=== PATIENT | female | born 1940 | race Asian ===

== ENCOUNTER 2016-12-30 17:19 | Inpatient (IN) | payer MEDICARE, OTHER ==
[~2016-12-30] VITALS: Ht 152.4 cm; Wt 69.0 kg
[~2016-12-30 17:19] MED LIST: ALEN10 PO; AMLO-511 PO; ATEN25 PO; CALC600T2 PO; DOCU250C76 PO; ERGO400C PO; ETOMIDATE 2 MG/ML 10 ML VIAL IV ONE; FERR-89 PO; VECURONIUM BROMIDE 10 MG/VIAL IV ONE
[2016-12-30 17:31] LABS: GLUCOSE,POINT OF CARE 385 MG/DL (70-110)
[2016-12-30 17:58] LABS: EOSINOPHILS % (AUTO) 0 % (1.0-6.0); HEMATOCRIT 35.5 % (36-46); HEMOGLOBIN 11.6 g/dL (12.0-16.0); LYMPHOCYTES # (AUTO) 1.5 K/uL (1.0-4.8); LYMPHOCYTES % (AUTO) 11.9 % (22.0-44.0); MEAN CORPUSCULAR HEMOGLOBIN 32.8 pg (26.0-34.0); MEAN CORPUSCULAR HGB CONC 32.6 G/dL (31.0-37.0); MEAN CORPUSCULAR VOLUME 101 fL (80-100); MONOCYTES # (AUTO) 0.6 K/uL (0.1-1.0); MONOCYTES % (AUTO) 4.7 % (2.0-9.0); NEUTROPHILS # (AUTO) 10.8 K/uL (1.8-7.7); NEUTROPHILS % (AUTO) 83.4 % (40.0-70.0); PLATELET COUNT (AUTO) 212 K/uL (150-450); RED BLOOD CELL COUNT(AUTO) 3.52 MIL/uL (4.00-5.20); RED CELL DISTRIBUTION WIDTH 23.3 % (11.5-14.5); WHITE BLOOD COUNT (AUTO) 12.9 K/uL (4.5-11.0)
[2016-12-30 18:10] LABS: INR 1.1 (0.9-1.1); PROTHROMBIN TIME 11.1 SEC (9.4-11.6)
[2016-12-30 18:17] LABS: ANION GAP 12 mmol/L (8-16); CARBON DIOXIDE 22 mmol/L (22-29); CHLORIDE 100 mmol/L (98-107); CREATININE 1.08 mg/dL (0.60-1.30); GLOMERULAR FILTR. RATE CALC 49 mL/min (>60); POTASSIUM 3.3 mmol/L (3.5-5.1); SODIUM SERUM 134 mmol/L (136-145); UREA NITROGEN, BLOOD 19 mg/dL (7-18)
[2016-12-30 18:23] LABS: TROPONIN I 0.38 ng/mL (0.00-0.05)
[2016-12-30 18:42] LABS: ALANINE AMINOTRANSFERASE 127 U/L (12-78); ALBUMIN 2.1 g/dL (3.4-5.0); ASPARTATE AMINOTRANSFERASE 99 U/L (15-37); BILIRUBIN,TOTAL 5.8 mg/dL (0.1-1.0); CREATINE KINASE MB 4.2 ng/mL (0-5); CREATINE KINASE, TOTAL 88 U/L (26-192); TOTAL PROTEIN, SERUM 6.7 g/dL (6.4-8.2)
[2016-12-30] MEDS ORDERED: OS500 PO (18:55)
[2016-12-30] MEDS ORDERED: LABETALOL HCL 5 MG/ML 20 ML VIAL IVP ONE (19:00)
[2016-12-30] MEDS ORDERED: CefTRIAXone 1 GM/DEXTROSE 50 ML IV ONE (19:00)
[2016-12-30 19:14] LABS: RBC MORPHOLOGY COMMENT ABNORMAL RBC MORPH
[2016-12-30 19:18] LABS: APPEARANCE,URINE CLOUDY (CLEAR); GLUCOSE, URINE (UA) 500 mg/dL (NEGATIVE); KETONES,URINE NEGATIVE (NEGATIVE); LEUKOCYTE ESTERASE ,URINE NEGATIVE (NEGATIVE); OCCULT BLOOD,URINE NEGATIVE (NEGATIVE); PH,URINE 6.5 (5.0-8.0); PROTEIN,URINE NEGATIVE (NEGATIVE)
[2016-12-30 19:19] LABS: ADD UA MICROSCOPIC YES
[2016-12-30 19:20] LABS: RBC,URINE 0-2 /HPF (0-2)
[2016-12-30 19:21] LABS: CALCIUM OXALATE CRYSTALS,UR Few /LPF (None Seen); SQUAMOUS EPITHELIAL CELL,UR Moderate /LPF (None Seen)
[2016-12-30] MEDS ORDERED: INSULIN REGULAR, HUMAN 100 UNITS/ML IVP ONE (19:30)
[2016-12-30] MEDS ORDERED: SUCCINYLCHOLINE CHLORIDE 20 MG/ML 10 ML VIAL ONE (19:35)
[2016-12-30] MEDS ORDERED: RAPID SEQUENCE KIT [RSI] 1 EACH KIT ONE ×2 (19:35)
[2016-12-30] MEDS ORDERED: LACTULOSE 20 GM/30 ML SOLUTION UDCUP NG ONE (20:15)
[2016-12-30] MEDS ORDERED: PROPOFOL 1% 20 ML VIAL IVP ONE (20:30)
[2016-12-30] MEDS ORDERED: PROPOFOL 1000 MG/ISO-OSM 100 ML IV PRN (20:30)
[2016-12-30 20:31] LABS: GLUCOSE,POINT OF CARE 326 MG/DL (70-110)
[2016-12-30 21:11] LABS: ABG A-A DIFF O2 91.8 mmHg (10-20.0); ABG BASE EXCESS -4.7 mmol/L (-2.0-3.0); ABG HCO3 21.4 mmol/L (22.0-26.0); ABG OXYHEMOGLOBIN 94.8 % (94.0-100.0); ABG PCO2 30 mmHg (35-45); ABG PH 7.436 (7.35-7.450); TEMPERATURE, FAHRENHEIT, BG 98.3 FAHREN (96.0-98.6)
[2016-12-30 21:12] LABS: ALLEN TEST, BLOOD GAS Positive
[2016-12-30 21:41] LABS: GLUCOSE,POINT OF CARE 278 MG/DL (70-110)
[2016-12-30] MEDS ORDERED: DILTIAZEM HCL 5 MG/ML 5 ML VIAL IVP ONE (21:45)
[2016-12-30] MEDS ORDERED: ONDANSETRON HCL 4 MG/2 ML VIAL IVP PRN (22:45)
[2016-12-30] MEDS ORDERED: ALBUTEROL SULFATE 2.5 MG/0.5 ML NEB SOLUTION NEB PRN (22:45)
[2016-12-30] MEDS ORDERED: DILTIAZEM HCL 125 MG in DEXTROSE 5%-WATER 100 ML IV SCH ×4 (23:00)
[2016-12-30 23:47] LABS: GLUCOSE,POINT OF CARE 237 MG/DL (70-110)
[2016-12-31] MEDS: HEPARIN SODIUM,PORCINE 5,000 UNITS/ML VIAL SQ SCH ×3 (00:14→17:40)
[2016-12-31] MEDS ORDERED: 0.9% SODIUM CHLORIDE 5 ML NEB SOLUTION NEB ONE ×4 (01:32→20:31)
[2016-12-31] MEDS: PIPERACILLIN/TAZO 3.375 GM/D5W 50 ML IV SCH ×4 (01:37→18:12)
[2016-12-31] MEDS: ALBUTEROL SULFATE 2.5 MG/0.5 ML NEB SOLUTION NEB SCH ×4 (01:43→20:36)
[2016-12-31 03:46] LABS: GLUCOSE,POINT OF CARE 247 MG/DL (70-110)
[2016-12-31 07:01] LABS: HEMATOCRIT 35.6 % (36-46); HEMOGLOBIN 11.6 g/dL (12.0-16.0); MEAN CORPUSCULAR HEMOGLOBIN 32.8 pg (26.0-34.0); MEAN CORPUSCULAR HGB CONC 32.7 G/dL (31.0-37.0); MEAN CORPUSCULAR VOLUME 100 fL (80-100); PLATELET COUNT (AUTO) 160 K/uL (150-450); RED BLOOD CELL COUNT(AUTO) 3.55 MIL/uL (4.00-5.20); RED CELL DISTRIBUTION WIDTH 22.7 % (11.5-14.5); WHITE BLOOD COUNT (AUTO) 11.2 K/uL (4.5-11.0)
[2016-12-31 07:24] LABS: ALBUMIN 1.8 g/dL (3.4-5.0); BILIRUBIN,TOTAL 5.2 mg/dL (0.1-1.0); CALCIUM, TOTAL 7.4 mg/dL (8.8-10.5); CREATININE 0.97 mg/dL (0.60-1.30); POTASSIUM 3.3 mmol/L (3.5-5.1); THYROID STIMULATING HORMONE 0.68 uIU/mL (0.36-3.74); TOTAL PROTEIN, SERUM 5.9 g/dL (6.4-8.2)
[2016-12-31 07:36] LABS: HEMOGLOBIN A1C 7.2 % (4.5-6.2)
[2016-12-31 07:55] LABS: BAND NEUTROPHILS % (MANUAL) 27 % (1-5); LYMPHOCYTES % (MANUAL) 13 % (22-44); TOTAL CELLS COUNTED 100
[2016-12-31 07:56] LABS: RBC MORPHOLOGY COMMENT DIMORPHIC RBC
[2016-12-31] MEDS: PANTOPRAZOLE SODIUM 40 MG/VIAL IVP SCH (08:44)
[2016-12-31 09:48] LABS: VITAMIN B12 LEVEL > 2000 pg/mL (211-911)
[2016-12-31 09:57] LABS: GLUCOSE,POINT OF CARE 175 MG/DL (70-110)
[2016-12-31] MEDS: SODIUM CHLORIDE 0.9% 1,000 ML IV SCH (11:16)
[2016-12-31 16:18] LABS: CREATINE KINASE MB 5.2 ng/mL (0-5)
[2016-12-31] MEDS ORDERED: PROPOFOL 1000 MG/ISO-OSM 100 ML IV ONE (16:54)
[2016-12-31 18:35] LABS: GLUCOSE,POINT OF CARE 138 MG/DL (70-110)
[2017-01-01] MEDS: PIPERACILLIN/TAZO 3.375 GM/D5W 50 ML IV SCH ×4 (00:05→18:39)
[2017-01-01] MEDS: HEPARIN SODIUM,PORCINE 5,000 UNITS/ML VIAL SQ SCH ×4 (00:05→23:52)
[2017-01-01] MEDS: ALBUTEROL SULFATE 2.5 MG/0.5 ML NEB SOLUTION NEB SCH ×4 (02:36→20:41)
[2017-01-01] MEDS ORDERED: 0.9% SODIUM CHLORIDE 5 ML NEB SOLUTION NEB ONE ×5 (02:36→20:42)
[2017-01-01] MEDS: SODIUM CHLORIDE 0.9% 1,000 ML IV SCH (06:26)
[2017-01-01] MEDS: PROPOFOL 1000 MG/ISO-OSM 100 ML IV PRN ×2 (06:36→16:06)
[2017-01-01 07:46] LABS: GLUCOSE,POINT OF CARE 106 MG/DL (70-110)
[2017-01-01 08:08] LABS: EOSINOPHILS % (AUTO) 0.3 % (1.0-6.0); HEMATOCRIT 31.9 % (36-46); HEMOGLOBIN 10.2 g/dL (12.0-16.0); LYMPHOCYTES # (AUTO) 1.9 K/uL (1.0-4.8); LYMPHOCYTES % (AUTO) 17.5 % (22.0-44.0); MEAN CORPUSCULAR HEMOGLOBIN 32.1 pg (26.0-34.0); MEAN CORPUSCULAR HGB CONC 32.1 G/dL (31.0-37.0); MEAN CORPUSCULAR VOLUME 100 fL (80-100); MONOCYTES # (AUTO) 0.3 K/uL (0.1-1.0); MONOCYTES % (AUTO) 2.8 % (2.0-9.0); NEUTROPHILS # (AUTO) 8.5 K/uL (1.8-7.7); NEUTROPHILS % (AUTO) 79.4 % (40.0-70.0); PLATELET COUNT (AUTO) 163 K/uL (150-450); RED BLOOD CELL COUNT(AUTO) 3.19 MIL/uL (4.00-5.20); WHITE BLOOD COUNT (AUTO) 10.7 K/uL (4.5-11.0)
[2017-01-01 08:41] LABS: CALCIUM, TOTAL 7.1 mg/dL (8.8-10.5); CREATININE 0.97 mg/dL (0.60-1.30); POTASSIUM 3.1 mmol/L (3.5-5.1); TOTAL PROTEIN, SERUM 5.2 g/dL (6.4-8.2)
[2017-01-01 09:55] LABS: ABG BASE EXCESS -0.2 mmol/L (-2.0-3.0); ABG OXYHEMOGLOBIN 96.3 % (94.0-100.0); ABG PCO2 28 mmHg (35-45); ABG PH 7.529 (7.35-7.450); TEMPERATURE, FAHRENHEIT, BG 97.8 FAHREN (96.0-98.6)
[2017-01-01 09:57] LABS: ALLEN TEST, BLOOD GAS Positive
[2017-01-01] MEDS: POTASSIUM CHL 10 MEQ/WATER 50 ML IV PRN ×3 (10:28→13:01)
[2017-01-01] MEDS: PANTOPRAZOLE SODIUM 40 MG/VIAL IVP SCH (10:28)
[2017-01-01 10:57] LABS: RBC MORPHOLOGY COMMENT ABNORMAL RBC MORPH
[2017-01-01 12:00] VITALS: BP 101/73
[2017-01-01 13:11] LABS: APPEARANCE,UNSPUN,BODY FLUID CLOUDY (CLEAR); COLOR,BODY FLUID YELLOW (LT YELLOW)
[2017-01-01 13:12] LABS: OTHER CELLS,BODY FLUID MACROPHAGES
[2017-01-01 16:00] VITALS: BP 123/68
[2017-01-01 20:00] VITALS: BP 117/73
[2017-01-01 22:00] VITALS: BP 85/60
[2017-01-02] VITALS (9 sets, daily range): BP systolic 94–132; BP diastolic 59–77
[2017-01-02] MEDS: PIPERACILLIN/TAZO 3.375 GM/D5W 50 ML IV SCH ×4 (00:38→17:51)
[2017-01-02] MEDS: ALBUTEROL SULFATE 2.5 MG/0.5 ML NEB SOLUTION NEB SCH ×4 (01:36→19:27)
[2017-01-02] MEDS ORDERED: 0.9% SODIUM CHLORIDE 5 ML NEB SOLUTION NEB ONE ×5 (01:37→19:28)
[2017-01-02] MEDS: PROPOFOL 1000 MG/ISO-OSM 100 ML IV PRN ×2 (02:19→13:27)
[2017-01-02] MEDS: SODIUM CHLORIDE 0.9% 1,000 ML IV SCH ×2 (04:49→23:56)
[2017-01-02 08:29] LABS: ABG A-A DIFF O2 102.3 mmHg (10-20.0); ABG BASE EXCESS -4.6 mmol/L (-2.0-3.0); ABG HCO3 21.5 mmol/L (22.0-26.0); ABG OXYHEMOGLOBIN 94.1 % (94.0-100.0); ABG PCO2 28 mmHg (35-45); ABG PH 7.458 (7.35-7.450); TEMPERATURE, FAHRENHEIT, BG 98.6 FAHREN (96.0-98.6)
[2017-01-02] MEDS: PANTOPRAZOLE SODIUM 40 MG/VIAL IVP SCH (08:31)
[2017-01-02] MEDS: HEPARIN SODIUM,PORCINE 5,000 UNITS/ML VIAL SQ SCH ×2 (08:31→16:00)
[2017-01-02 08:35] LABS: ALLEN TEST, BLOOD GAS Positive
[2017-01-02 09:46] LABS: ALBUMIN 1.2 g/dL (3.4-5.0); BILIRUBIN,TOTAL 4.9 mg/dL (0.1-1.0); CALCIUM, TOTAL 7.2 mg/dL (8.8-10.5); CREATININE 1.08 mg/dL (0.60-1.30); POTASSIUM 3.4 mmol/L (3.5-5.1); TOTAL PROTEIN, SERUM 4.7 g/dL (6.4-8.2)
[2017-01-02] MEDS: POTASSIUM CHL 10 MEQ/WATER 50 ML IV PRN ×3 (10:40→15:05)
[2017-01-02] MEDS: INSULIN REGULAR, HUMAN 100 UNITS/ML SQ PRN ×2 (13:27→17:52)
[2017-01-02 16:11] LABS: TOTAL PROTEIN,BODY FLUID,REF 2.1 g/dL
[2017-01-03] VITALS (8 sets, daily range): BP systolic 116–143; BP diastolic 66–82
[2017-01-03] MEDS: HEPARIN SODIUM,PORCINE 5,000 UNITS/ML VIAL SQ SCH ×3 (00:01→18:26)
[2017-01-03] MEDS: PIPERACILLIN/TAZO 3.375 GM/D5W 50 ML IV SCH ×4 (00:01→18:27)
[2017-01-03] MEDS: INSULIN REGULAR, HUMAN 100 UNITS/ML SQ PRN ×4 (00:58→18:27)
[2017-01-03] MEDS ORDERED: 0.9% SODIUM CHLORIDE 5 ML NEB SOLUTION NEB ONE ×5 (02:14→19:11)
[2017-01-03] MEDS: ALBUTEROL SULFATE 2.5 MG/0.5 ML NEB SOLUTION NEB SCH ×4 (02:16→19:54)
[2017-01-03] MEDS: PROPOFOL 1000 MG/ISO-OSM 100 ML IV PRN (03:32)
[2017-01-03 05:15] LABS: CALCIUM, TOTAL 7.8 mg/dL (8.8-10.5); CREATININE 1.11 mg/dL (0.60-1.30); POTASSIUM 4.4 mmol/L (3.5-5.1)
[2017-01-03] MEDS: PANTOPRAZOLE SODIUM 40 MG/VIAL IVP SCH (08:06)
[2017-01-03] MEDS: ALBUMIN HUMAN 25%-25GM/100ML 100 ML IV SCH ×2 (10:39→18:27)
[2017-01-03 11:16] LABS: GLUCOSE COMMENT 1 Received Meds; GLUCOSE,POINT OF CARE 277 MG/DL (70-110)
[2017-01-03 11:16] LABS: GLUCOSE COMMENT 1 Received Meds; GLUCOSE,POINT OF CARE 274 MG/DL (70-110)
[2017-01-03] MEDS: SODIUM CHLORIDE 0.9% 1,000 ML IV SCH (18:27)
[2017-01-03 21:31] LABS: GLUCOSE COMMENT 1 Received Meds; GLUCOSE,POINT OF CARE 151 MG/DL (70-110)
[2017-01-03 21:36] LABS: GLUCOSE COMMENT 1 Received Meds; GLUCOSE,POINT OF CARE 260 MG/DL (70-110)
[2017-01-03 21:36] LABS: GLUCOSE COMMENT 1 Received Meds; GLUCOSE,POINT OF CARE 266 MG/DL (70-110)
[2017-01-03 21:37] LABS: GLUCOSE COMMENT 1 Received Meds; GLUCOSE,POINT OF CARE 238 MG/DL (70-110)
[2017-01-03] MEDS: RIFAXIMIN 550 MG TABLET PO SCH (21:44)
[2017-01-04] VITALS: BP 126/70
[2017-01-04] MEDS: PIPERACILLIN/TAZO 3.375 GM/D5W 50 ML IV SCH ×4 (00:41→18:29)
[2017-01-04] MEDS: HEPARIN SODIUM,PORCINE 5,000 UNITS/ML VIAL SQ SCH ×3 (00:41→15:13)
[2017-01-04] MEDS: INSULIN REGULAR, HUMAN 100 UNITS/ML SQ PRN ×2 (00:44→06:30)
[2017-01-04] MEDS ORDERED: 0.9% SODIUM CHLORIDE 5 ML NEB SOLUTION NEB ONE ×4 (01:30→20:03)
[2017-01-04 01:42] LABS: GLUCOSE COMMENT 1 Received Meds; GLUCOSE,POINT OF CARE 278 MG/DL (70-110)
[2017-01-04 01:42] LABS: GLUCOSE COMMENT 1 Received Meds; GLUCOSE,POINT OF CARE 179 MG/DL (70-110)
[2017-01-04] MEDS: ALBUTEROL SULFATE 2.5 MG/0.5 ML NEB SOLUTION NEB SCH ×4 (01:48→21:19)
[2017-01-04] MEDS: ALBUMIN HUMAN 25%-25GM/100ML 100 ML IV SCH ×3 (01:51→16:54)
[2017-01-04 04:00] VITALS: BP 115/65
[2017-01-04 05:25] LABS: HEMATOCRIT 21.5 % (36-46); HEMOGLOBIN 7.3 g/dL (12.0-16.0); MEAN CORPUSCULAR HEMOGLOBIN 32.8 pg (26.0-34.0); MEAN CORPUSCULAR HGB CONC 33.8 G/dL (31.0-37.0); MEAN CORPUSCULAR VOLUME 97 fL (80-100); RED BLOOD CELL COUNT(AUTO) 2.21 MIL/uL (4.00-5.20); RED CELL DISTRIBUTION WIDTH 22.1 % (11.5-14.5); WHITE BLOOD COUNT (AUTO) 6.9 K/uL (4.5-11.0)
[2017-01-04 05:55] LABS: ALANINE AMINOTRANSFERASE 38 U/L (12-78); ALBUMIN 2.9 g/dL (3.4-5.0); ANION GAP 12 mmol/L (8-16); ASPARTATE AMINOTRANSFERASE 45 U/L (15-37); BILIRUBIN,TOTAL 5.1 mg/dL (0.1-1.0); CALCIUM, TOTAL 8.2 mg/dL (8.8-10.5); CARBON DIOXIDE 23 mmol/L (22-29); CHLORIDE 106 mmol/L (98-107); GLOMERULAR FILTR. RATE CALC > 60 mL/min (>60); POTASSIUM 3.6 mmol/L (3.5-5.1); SODIUM SERUM 141 mmol/L (136-145); TOTAL PROTEIN, SERUM 5.2 g/dL (6.4-8.2); UREA NITROGEN, BLOOD 24 mg/dL (7-18)
[2017-01-04 05:56] LABS: PLATELET COUNT (AUTO) 146 K/uL (150-450)
[2017-01-04 05:59] LABS: BAND NEUTROPHILS % (MANUAL) 16 % (1-5); LYMPHOCYTES % (MANUAL) 14 % (22-44); RBC MORPHOLOGY COMMENT ABNORMAL R; TOTAL CELLS COUNTED 100
[2017-01-04] MEDS: PROPOFOL 1000 MG/ISO-OSM 100 ML IV PRN (06:59)
[2017-01-04 08:00] VITALS: BP 114/63
[2017-01-04] MEDS: POTASSIUM CHL 10 MEQ/WATER 50 ML IV PRN ×3 (08:01→11:00)
[2017-01-04] MEDS: RIFAXIMIN 550 MG TABLET PO SCH ×2 (08:01→20:19)
[2017-01-04] MEDS: PANTOPRAZOLE SODIUM 40 MG/VIAL IVP SCH (08:01)
[2017-01-04 12:00] VITALS: BP 103/55
[2017-01-04] MEDS: SODIUM CHLORIDE 0.9% 1,000 ML IV SCH (15:00)
[2017-01-04 16:00] VITALS: BP 100/58
[2017-01-04] MEDS ORDERED: *CLINICAL-RX DOSING [ENTER DRUG IN COMMENTS] CLINICAL ONE ×8 (17:30)
[2017-01-04 20:00] VITALS: BP 103/56
[2017-01-04] MEDS: RIFAMPIN 150 MG CAPSULE PO SCH (20:20)
[2017-01-04] MEDS: ETHAMBUTOL HCL 400 MG TABLET PO SCH (20:20)
[2017-01-04] MEDS: PYRAZINAMIDE 500 MG TABLET PO SCH (20:20)
[2017-01-04] MEDS: ISONIAZID 300 MG TABLET PO SCH (20:21)
[2017-01-04 20:25] LABS: GLUCOSE COMMENT 1 Received Meds; GLUCOSE,POINT OF CARE 173 MG/DL (70-110)
[2017-01-05] VITALS (8 sets, daily range): BP systolic 99–148; BP diastolic 51–77
[2017-01-05] MEDS: PIPERACILLIN/TAZO 3.375 GM/D5W 50 ML IV SCH ×4 (00:22→17:46)
[2017-01-05] MEDS: HEPARIN SODIUM,PORCINE 5,000 UNITS/ML VIAL SQ SCH ×2 (00:23→08:23)
[2017-01-05] MEDS: INSULIN REGULAR, HUMAN 100 UNITS/ML SQ PRN ×3 (00:24→12:39)
[2017-01-05] MEDS ORDERED: 0.9% SODIUM CHLORIDE 5 ML NEB SOLUTION NEB ONE ×4 (02:10→19:19)
[2017-01-05] MEDS: ALBUTEROL SULFATE 2.5 MG/0.5 ML NEB SOLUTION NEB SCH ×4 (02:18→19:23)
[2017-01-05 02:27] LABS: GLUCOSE,POINT OF CARE 137 MG/DL (70-110)
[2017-01-05 02:27] LABS: GLUCOSE,POINT OF CARE 121 MG/DL (70-110)
[2017-01-05 02:27] LABS: GLUCOSE COMMENT 1 Received Meds; GLUCOSE,POINT OF CARE 186 MG/DL (70-110)
[2017-01-05] MEDS: ALBUMIN HUMAN 25%-25GM/100ML 100 ML IV SCH ×3 (03:25→17:46)
[2017-01-05 04:36] LABS: GLUCOSE COMMENT 1 Received Meds; GLUCOSE,POINT OF CARE 143 MG/DL (70-110)
[2017-01-05 05:20] LABS: BASOPHILS # (AUTO) 0.02 K/uL (0.00-0.20); BASOPHILS % (AUTO) 0.4 % (0.0-2.0); EOSINOPHILS # (AUTO) 0.05 K/uL (0.00-0.70); HEMATOCRIT 21.5 % (36-46); LYMPHOCYTES # (AUTO) 0.4 K/uL (1.0-4.8); LYMPHOCYTES % (AUTO) 6.5 % (22.0-44.0); MEAN CORPUSCULAR HEMOGLOBIN 32.5 pg (26.0-34.0); MEAN CORPUSCULAR HGB CONC 32.7 G/dL (31.0-37.0); MEAN CORPUSCULAR VOLUME 99 fL (80-100); MONOCYTES # (AUTO) 0.4 K/uL (0.1-1.0); MONOCYTES % (AUTO) 6.4 % (2.0-9.0); NEUTROPHILS # (AUTO) 4.7 K/uL (1.8-7.7); PLATELET COUNT (AUTO) 117 K/uL (150-450); RED BLOOD CELL COUNT(AUTO) 2.17 MIL/uL (4.00-5.20); RED CELL DISTRIBUTION WIDTH 22.4 % (11.5-14.5); WHITE BLOOD COUNT (AUTO) 5.4 K/uL (4.5-11.0)
[2017-01-05 05:29] LABS: NEUTROPHILS % (AUTO) 85.8 % (40.0-70.0)
[2017-01-05 05:38] LABS: ALBUMIN 3.4 g/dL (3.4-5.0); BILIRUBIN,TOTAL 6.5 mg/dL (0.1-1.0); CALCIUM, TOTAL 8.2 mg/dL (8.8-10.5); CREATININE 0.92 mg/dL (0.60-1.30); POTASSIUM 3.4 mmol/L (3.5-5.1); TOTAL PROTEIN, SERUM 5.2 g/dL (6.4-8.2)
[2017-01-05] MEDS: ACETAMINOPHEN 325 MG TABLET PO PRN (05:54)
[2017-01-05 07:40] LABS: RBC MORPHOLOGY COMMENT ABNORMAL RBC MORPH
[2017-01-05] MEDS: POTASSIUM CHLORIDE 20 MEQ ER TABLET PO PRN (08:24)
[2017-01-05] MEDS: RIFAXIMIN 550 MG TABLET PO SCH ×2 (08:24→20:03)
[2017-01-05] MEDS: RIFAMPIN 150 MG CAPSULE PO SCH (08:24)
[2017-01-05] MEDS: PANTOPRAZOLE SODIUM 40 MG/VIAL IVP SCH (08:24)
[2017-01-05] MEDS: ETHAMBUTOL HCL 400 MG TABLET PO SCH (08:24)
[2017-01-05] MEDS: PYRAZINAMIDE 500 MG TABLET PO SCH (08:25)
[2017-01-05] MEDS: ISONIAZID 300 MG TABLET PO SCH (08:25)
[2017-01-05] MEDS: SODIUM CHLORIDE 0.9% 1,000 ML IV SCH (10:30)
[2017-01-05] MEDS ORDERED: SODIUM CHLORIDE 0.9% 500 ML IV ONE (15:21)
[2017-01-05] MEDS: MORPHINE SULFATE 2 MG/ML SYRINGE IVP PRN (15:26)
[2017-01-05 17:51] LABS: GLUCOSE,POINT OF CARE 103 MG/DL (70-110)
[2017-01-05 17:51] LABS: GLUCOSE COMMENT 1 Received Meds; GLUCOSE,POINT OF CARE 152 MG/DL (70-110)
[2017-01-05] MEDS ORDERED: SODIUM CHLORIDE 0.9% 250 ML IV ONE (20:45)
[2017-01-06] VITALS (10 sets, daily range): BP systolic 116–167; BP diastolic 50–93
[2017-01-06] MEDS: INSULIN REGULAR, HUMAN 100 UNITS/ML SQ PRN ×4 (00:05→18:02)
[2017-01-06] MEDS: PIPERACILLIN/TAZO 3.375 GM/D5W 50 ML IV SCH ×4 (00:06→18:01)
[2017-01-06] MEDS ORDERED: 0.9% SODIUM CHLORIDE 5 ML NEB SOLUTION NEB ONE ×4 (02:07→19:37)
[2017-01-06] MEDS: ALBUTEROL SULFATE 2.5 MG/0.5 ML NEB SOLUTION NEB SCH ×4 (02:08→19:53)
[2017-01-06] MEDS: ALBUMIN HUMAN 25%-25GM/100ML 100 ML IV SCH ×3 (03:44→18:00)
[2017-01-06 04:01] LABS: GLUCOSE COMMENT 1 Received Meds; GLUCOSE,POINT OF CARE 133 MG/DL (70-110)
[2017-01-06 05:36] LABS: ALANINE AMINOTRANSFERASE 17 U/L (12-78); ALBUMIN 3.6 g/dL (3.4-5.0); ANION GAP 13 mmol/L (8-16); ASPARTATE AMINOTRANSFERASE 27 U/L (15-37); BILIRUBIN,TOTAL 12.1 mg/dL (0.1-1.0); CALCIUM, TOTAL 8.5 mg/dL (8.8-10.5); CARBON DIOXIDE 21 mmol/L (22-29); CHLORIDE 109 mmol/L (98-107); CREATININE 0.76 mg/dL (0.60-1.30); GLOMERULAR FILTR. RATE CALC > 60 mL/min (>60); POTASSIUM 3.5 mmol/L (3.5-5.1); SODIUM SERUM 143 mmol/L (136-145); TOTAL PROTEIN, SERUM 5.2 g/dL (6.4-8.2); UREA NITROGEN, BLOOD 19 mg/dL (7-18)
[2017-01-06 06:39] LABS: EOSINOPHILS % (AUTO) 1.5 % (1.0-6.0); HEMATOCRIT 31.5 % (36-46); HEMOGLOBIN 10.4 g/dL (12.0-16.0); LYMPHOCYTES # (AUTO) 0.4 K/uL (1.0-4.8); MEAN CORPUSCULAR HEMOGLOBIN 30.9 pg (26.0-34.0); MEAN CORPUSCULAR VOLUME 94 fL (80-100); MONOCYTES # (AUTO) 0.4 K/uL (0.1-1.0); MONOCYTES % (AUTO) 7.1 % (2.0-9.0); NEUTROPHILS # (AUTO) 5.3 K/uL (1.8-7.7); PLATELET COUNT (AUTO) 87 K/uL (150-450); RED BLOOD CELL COUNT(AUTO) 3.37 MIL/uL (4.00-5.20); RED CELL DISTRIBUTION WIDTH 23.6 % (11.5-14.5); WHITE BLOOD COUNT (AUTO) 6.3 K/uL (4.5-11.0)
[2017-01-06] MEDS: LACTULOSE 20 GM/30 ML SOLUTION UDCUP PO PRN (07:00)
[2017-01-06] MEDS: SODIUM CHLORIDE 0.9% 1,000 ML IV SCH (07:02)
[2017-01-06 07:26] LABS: NEUTROPHILS % (AUTO) 85.4 % (40.0-70.0)
[2017-01-06] MEDS: PANTOPRAZOLE SODIUM 40 MG/VIAL IVP SCH (08:29)
[2017-01-06] MEDS: POTASSIUM CHL 10 MEQ/WATER 50 ML IV PRN ×2 (08:29→12:10)
[2017-01-06] MEDS: PYRIDOXINE HCL 50 MG TABLET PO SCH (08:29)
[2017-01-06] MEDS: ISONIAZID 300 MG TABLET PO SCH (08:30)
[2017-01-06] MEDS: PYRAZINAMIDE 500 MG TABLET PO SCH (08:30)
[2017-01-06] MEDS: ETHAMBUTOL HCL 400 MG TABLET PO SCH (08:30)
[2017-01-06] MEDS: RIFAXIMIN 550 MG TABLET PO SCH ×2 (08:30→22:01)
[2017-01-06] MEDS: RIFAMPIN 150 MG CAPSULE PO SCH (08:31)
[2017-01-06] MEDS: MORPHINE SULFATE 2 MG/ML SYRINGE IVP PRN ×2 (09:45→14:54)
[2017-01-06 10:12] LABS: ABG A-A DIFF O2 109.5 mmHg (10-20.0); ABG BASE EXCESS -6.2 mmol/L (-2.0-3.0); ABG HCO3 20.4 mmol/L (22.0-26.0); ABG OXYHEMOGLOBIN 92.9 % (94.0-100.0); ABG PCO2 29 mmHg (35-45); ABG PH 7.422 (7.35-7.450); TEMPERATURE, FAHRENHEIT, BG 98.6 FAHREN (96.0-98.6)
[2017-01-06 10:14] LABS: ALLEN TEST, BLOOD GAS Positive
[2017-01-06 11:06] LABS: GLUCOSE COMMENT 1 Received Meds; GLUCOSE,POINT OF CARE 142 MG/DL (70-110)
[2017-01-06 14:59] LABS: ANION GAP 14 mmol/L (8-16); CALCIUM, TOTAL 9.2 mg/dL (8.8-10.5); CARBON DIOXIDE 22 mmol/L (22-29); CHLORIDE 108 mmol/L (98-107); CREATININE 0.76 mg/dL (0.60-1.30); GLOMERULAR FILTR. RATE CALC > 60 mL/min (>60); POTASSIUM 4.3 mmol/L (3.5-5.1); SODIUM SERUM 144 mmol/L (136-145); UREA NITROGEN, BLOOD 19 mg/dL (7-18)
[2017-01-06] MEDS ORDERED: AMIODARONE HCL 150 MG in DEXTROSE 5%-WATER 97 ML IV ONE (15:00)
[2017-01-06] MEDS ORDERED: AMIODARONE HCL 360 MG in DEXTROSE 5%-WATER 242.8 ML IV ONE (15:10)
[2017-01-06 18:41] LABS: GLUCOSE COMMENT 1 Received Meds; GLUCOSE,POINT OF CARE 146 MG/DL (70-110)
[2017-01-06 18:46] LABS: GLUCOSE,POINT OF CARE 168 MG/DL (70-110)
[2017-01-06] MEDS ORDERED: AMIODARONE HCL 540 MG in DEXTROSE 5%-WATER 239.2 ML IV ONE (21:10)
[2017-01-07] VITALS (11 sets, daily range): BP systolic 116–152; BP diastolic 61–93
[2017-01-07] MEDS: PIPERACILLIN/TAZO 3.375 GM/D5W 50 ML IV SCH ×4 (00:19→18:33)
[2017-01-07] MEDS: INSULIN REGULAR, HUMAN 100 UNITS/ML SQ PRN ×4 (00:21→18:08)
[2017-01-07 01:17] LABS: GLUCOSE COMMENT 1 Received Meds; GLUCOSE,POINT OF CARE 174 MG/DL (70-110)
[2017-01-07] MEDS ORDERED: 0.9% SODIUM CHLORIDE 5 ML NEB SOLUTION NEB ONE ×3 (01:34→19:07)
[2017-01-07] MEDS: ALBUTEROL SULFATE 2.5 MG/0.5 ML NEB SOLUTION NEB SCH ×4 (01:39→19:11)
[2017-01-07] MEDS: ALBUMIN HUMAN 25%-25GM/100ML 100 ML IV SCH ×3 (02:42→18:06)
[2017-01-07] MEDS: SODIUM CHLORIDE 0.9% 1,000 ML IV SCH (03:16)
[2017-01-07 05:16] LABS: GLUCOSE COMMENT 1 Received Meds; GLUCOSE,POINT OF CARE 171 MG/DL (70-110)
[2017-01-07 05:52] LABS: ALANINE AMINOTRANSFERASE 17 U/L (12-78); ALBUMIN 3.7 g/dL (3.4-5.0); ANION GAP 13 mmol/L (8-16); ASPARTATE AMINOTRANSFERASE 26 U/L (15-37); BILIRUBIN,TOTAL 15.6 mg/dL (0.1-1.0); CALCIUM, TOTAL 8.6 mg/dL (8.8-10.5); CARBON DIOXIDE 20 mmol/L (22-29); CHLORIDE 108 mmol/L (98-107); CREATININE 0.68 mg/dL (0.60-1.30); GLOMERULAR FILTR. RATE CALC > 60 mL/min (>60); POTASSIUM 3.7 mmol/L (3.5-5.1); SODIUM SERUM 141 mmol/L (136-145); TOTAL PROTEIN, SERUM 5.1 g/dL (6.4-8.2); UREA NITROGEN, BLOOD 19 mg/dL (7-18)
[2017-01-07 06:20] LABS: BASOPHILS # (AUTO) 0.02 K/uL (0.00-0.20); BASOPHILS % (AUTO) 0.3 % (0.0-2.0); EOSINOPHILS # (AUTO) 0.06 K/uL (0.00-0.70); EOSINOPHILS % (AUTO) 0.82 % (1.0-6.0); HEMATOCRIT 29.7 % (36-46); HEMOGLOBIN 10.1 g/dL (12.0-16.0); LYMPHOCYTES # (AUTO) 0.4 K/uL (1.0-4.8); LYMPHOCYTES % (AUTO) 6.5 % (22.0-44.0); MEAN CORPUSCULAR HEMOGLOBIN 31.5 pg (26.0-34.0); MEAN CORPUSCULAR HGB CONC 34.1 G/dL (31.0-37.0); MEAN CORPUSCULAR VOLUME 93 fL (80-100); MONOCYTES # (AUTO) 0.3 K/uL (0.1-1.0); MONOCYTES % (AUTO) 4.6 % (2.0-9.0); PLATELET COUNT (AUTO) 77 K/uL (150-450); RED BLOOD CELL COUNT(AUTO) 3.21 MIL/uL (4.00-5.20); RED CELL DISTRIBUTION WIDTH 23.7 % (11.5-14.5); WHITE BLOOD COUNT (AUTO) 6.8 K/uL (4.5-11.0)
[2017-01-07 06:37] LABS: NEUTROPHILS % (AUTO) 87.8 % (40.0-70.0)
[2017-01-07] MEDS: PYRIDOXINE HCL 50 MG TABLET PO SCH (09:02)
[2017-01-07] MEDS: PANTOPRAZOLE SODIUM 40 MG/VIAL IVP SCH (09:02)
[2017-01-07] MEDS: RIFAXIMIN 550 MG TABLET PO SCH ×2 (09:03→21:26)
[2017-01-07] MEDS: MORPHINE SULFATE 2 MG/ML SYRINGE IVP PRN ×2 (09:04→15:39)
[2017-01-07 10:34] LABS: RBC MORPHOLOGY COMMENT ABNORMAL RBC MORPH
[2017-01-07 13:11] LABS: GLUCOSE,POINT OF CARE 164 MG/DL (70-110)
[2017-01-07] MEDS: ACETAMINOPHEN 325 MG TABLET PO PRN (13:25)
[2017-01-07] MEDS ORDERED: AMIODARONE HCL 750 MG in DEXTROSE 5%-WATER 485 ML IV SCH (15:10)
[2017-01-07 18:41] LABS: GLUCOSE COMMENT 1 Received Meds; GLUCOSE,POINT OF CARE 178 MG/DL (70-110)
[2017-01-08] VITALS: BP 141/74
[2017-01-08] MEDS: INSULIN REGULAR, HUMAN 100 UNITS/ML SQ PRN ×4 (01:04→18:30)
[2017-01-08] MEDS: PIPERACILLIN/TAZO 3.375 GM/D5W 50 ML IV SCH ×4 (01:15→18:08)
[2017-01-08] MEDS: SODIUM CHLORIDE 0.9% 1,000 ML IV SCH (01:16)
[2017-01-08] MEDS: ALBUTEROL SULFATE 2.5 MG/0.5 ML NEB SOLUTION NEB SCH ×4 (02:00→19:15)
[2017-01-08] MEDS ORDERED: 0.9% SODIUM CHLORIDE 5 ML NEB SOLUTION NEB ONE ×2 (02:25→14:30)
[2017-01-08] MEDS: ALBUMIN HUMAN 25%-25GM/100ML 100 ML IV SCH ×3 (02:28→18:08)
[2017-01-08 03:26] LABS: GLUCOSE COMMENT 1 Received Meds; GLUCOSE,POINT OF CARE 194 MG/DL (70-110)
[2017-01-08 04:00] VITALS: BP 168/97
[2017-01-08] MEDS: MORPHINE SULFATE 2 MG/ML SYRINGE IVP PRN ×2 (04:21→12:00)
[2017-01-08 05:32] LABS: BASOPHILS # (AUTO) 0.02 K/uL (0.00-0.20); BASOPHILS % (AUTO) 0.2 % (0.0-2.0); EOSINOPHILS % (AUTO) 1.02 % (1.0-6.0); HEMOGLOBIN 11.4 g/dL (12.0-16.0); LYMPHOCYTES # (AUTO) 0.5 K/uL (1.0-4.8); LYMPHOCYTES % (AUTO) 4.7 % (22.0-44.0); MEAN CORPUSCULAR HEMOGLOBIN 31.3 pg (26.0-34.0); MEAN CORPUSCULAR HGB CONC 33.4 G/dL (31.0-37.0); MEAN CORPUSCULAR VOLUME 94 fL (80-100); MONOCYTES # (AUTO) 0.3 K/uL (0.1-1.0); NEUTROPHILS # (AUTO) 8.8 K/uL (1.8-7.7); PLATELET COUNT (AUTO) 89 K/uL (150-450); RED BLOOD CELL COUNT(AUTO) 3.63 MIL/uL (4.00-5.20); RED CELL DISTRIBUTION WIDTH 24.3 % (11.5-14.5); WHITE BLOOD COUNT (AUTO) 9.7 K/uL (4.5-11.0)
[2017-01-08 05:46] LABS: NEUTROPHILS % (AUTO) 91.1 % (40.0-70.0)
[2017-01-08 06:02] LABS: ALANINE AMINOTRANSFERASE 14 U/L (12-78); ALBUMIN 4.3 g/dL (3.4-5.0); ANION GAP 16 mmol/L (8-16); ASPARTATE AMINOTRANSFERASE 32 U/L (15-37); BILIRUBIN,TOTAL 17.2 mg/dL (0.1-1.0); CALCIUM, TOTAL 8.9 mg/dL (8.8-10.5); CARBON DIOXIDE 17 mmol/L (22-29); CHLORIDE 106 mmol/L (98-107); CREATININE 0.61 mg/dL (0.60-1.30); GLOMERULAR FILTR. RATE CALC > 60 mL/min (>60); POTASSIUM 3.3 mmol/L (3.5-5.1); SODIUM SERUM 139 mmol/L (136-145); TOTAL PROTEIN, SERUM 5.7 g/dL (6.4-8.2); UREA NITROGEN, BLOOD 21 mg/dL (7-18)
[2017-01-08 08:00] VITALS: BP 135/73
[2017-01-08 08:33] LABS: RBC MORPHOLOGY COMMENT ABNORMAL RBC MORPH
[2017-01-08] MEDS: PANTOPRAZOLE SODIUM 40 MG/VIAL IVP SCH (08:58)
[2017-01-08] MEDS: PYRIDOXINE HCL 50 MG TABLET PO SCH (08:59)
[2017-01-08] MEDS: RIFAXIMIN 550 MG TABLET PO SCH ×2 (08:59→22:05)
[2017-01-08] MEDS: POTASSIUM CHLORIDE 20 MEQ ER TABLET PO PRN (08:59)
[2017-01-08 09:01] LABS: GLUCOSE COMMENT 1 Received Meds; GLUCOSE,POINT OF CARE 171 MG/DL (70-110)
[2017-01-08] MEDS ORDERED: FUROSEMIDE 40 MG/4 ML VIAL IVP ONE (11:45)
[2017-01-08 12:00] VITALS: BP 159/89
[2017-01-08] MEDS: AMIODARONE HCL 200 MG TABLET NG SCH ×2 (14:24→22:05)
[2017-01-08 16:00] VITALS: BP 164/85
[2017-01-08] MEDS ORDERED: 0.9% SODIUM CHLORIDE 15 ML NEB SOLUTION NEB ONE (19:14)
[2017-01-08 20:00] VITALS: BP 121/63
[2017-01-09] VITALS (11 sets, daily range): BP systolic 94–154; BP diastolic 52–85
[2017-01-09] MEDS: AMPICILLIN SODIUM/SULBACTAM NA 3 GM in SODIUM CHLORIDE 0.9% 100 ML IV SCH ×5 (00:18→23:37)
[2017-01-09] MEDS: INSULIN REGULAR, HUMAN 100 UNITS/ML SQ PRN ×5 (00:33→23:43)
[2017-01-09] MEDS: ALBUTEROL SULFATE 2.5 MG/0.5 ML NEB SOLUTION NEB SCH ×4 (01:48→20:08)
[2017-01-09] MEDS: ALBUMIN HUMAN 25%-25GM/100ML 100 ML IV SCH ×3 (02:22→18:31)
[2017-01-09] MEDS: MORPHINE SULFATE 2 MG/ML SYRINGE IVP PRN ×3 (03:34→22:06)
[2017-01-09 06:45] LABS: BASOPHILS % (AUTO) 0.6 % (0.0-2.0); EOSINOPHILS % (AUTO) 1.2 % (1.0-6.0); HEMATOCRIT 30.1 % (36-46); HEMOGLOBIN 9.8 g/dL (12.0-16.0); LYMPHOCYTES # (AUTO) 0.4 K/uL (1.0-4.8); LYMPHOCYTES % (AUTO) 5.3 % (22.0-44.0); MEAN CORPUSCULAR HEMOGLOBIN 31.1 pg (26.0-34.0); MEAN CORPUSCULAR HGB CONC 32.7 G/dL (31.0-37.0); MEAN CORPUSCULAR VOLUME 95 fL (80-100); MONOCYTES # (AUTO) 0.3 K/uL (0.1-1.0); MONOCYTES % (AUTO) 3.9 % (2.0-9.0); NEUTROPHILS # (AUTO) 7.1 K/uL (1.8-7.7); PLATELET COUNT (AUTO) 77 K/uL (150-450); RED BLOOD CELL COUNT(AUTO) 3.17 MIL/uL (4.00-5.20); RED CELL DISTRIBUTION WIDTH 24.2 % (11.5-14.5)
[2017-01-09 07:36] LABS: ALANINE AMINOTRANSFERASE 14 U/L (12-78); ALBUMIN 3.8 g/dL (3.4-5.0); ANION GAP 13 mmol/L (8-16); ASPARTATE AMINOTRANSFERASE 42 U/L (15-37); BILIRUBIN,TOTAL 15.9 mg/dL (0.1-1.0); CALCIUM, TOTAL 8.6 mg/dL (8.8-10.5); CARBON DIOXIDE 19 mmol/L (22-29); CHLORIDE 107 mmol/L (98-107); CREATININE 0.73 mg/dL (0.60-1.30); GLOMERULAR FILTR. RATE CALC > 60 mL/min (>60); POTASSIUM 3.1 mmol/L (3.5-5.1); SODIUM SERUM 139 mmol/L (136-145); TOTAL PROTEIN, SERUM 5.1 g/dL (6.4-8.2); UREA NITROGEN, BLOOD 24 mg/dL (7-18)
[2017-01-09 07:50] LABS: RBC MORPHOLOGY COMMENT ABNORMAL RBC MORPH
[2017-01-09] MEDS: PANTOPRAZOLE SODIUM 40 MG/VIAL IVP SCH (08:35)
[2017-01-09] MEDS: RIFAXIMIN 550 MG TABLET PO SCH ×2 (08:36→20:04)
[2017-01-09] MEDS: AMIODARONE HCL 200 MG TABLET NG SCH ×2 (08:36→20:04)
[2017-01-09 08:41] LABS: ABG A-A DIFF O2 171.8 mmHg (10-20.0); ABG BASE EXCESS -6.6 mmol/L (-2.0-3.0); ABG HCO3 19.9 mmol/L (22.0-26.0); ABG OXYHEMOGLOBIN 94.5 % (94.0-100.0); ABG PCO2 27 mmHg (35-45); ABG PH 7.432 (7.35-7.450); TEMPERATURE, FAHRENHEIT, BG 98.6 FAHREN (96.0-98.6)
[2017-01-09 08:45] LABS: ALLEN TEST, BLOOD GAS Positive
[2017-01-09 12:08] LABS: APPEARANCE,URINE TURBID (CLEAR); GLUCOSE, URINE (UA) NEGATIVE (NEGATIVE); KETONES,URINE NEGATIVE (NEGATIVE); LEUKOCYTE ESTERASE ,URINE LARGE (NEGATIVE); OCCULT BLOOD,URINE LARGE (NEGATIVE); PROTEIN,URINE POS 1+ (NEGATIVE)
[2017-01-09 12:17] LABS: ADD UA MICROSCOPIC YES
[2017-01-09 12:22] LABS: SQUAMOUS EPITHELIAL CELL,UR Few /LPF (None Seen)
[2017-01-09] MEDS: POTASSIUM CHL 10 MEQ/WATER 50 ML IV PRN ×5 (13:41→23:37)
[2017-01-09] MEDS ORDERED: 0.9% SODIUM CHLORIDE 5 ML NEB SOLUTION NEB ONE ×4 (14:19→19:12)
[2017-01-09 18:04] LABS: AFB SPECIMEN PROCESSING Concentration
[2017-01-09 18:36] LABS: GLUCOSE COMMENT 1 Received Meds; GLUCOSE,POINT OF CARE 145 MG/DL (70-110)
[2017-01-09 18:36] LABS: GLUCOSE COMMENT 1 Received Meds; GLUCOSE,POINT OF CARE 164 MG/DL (70-110)
[2017-01-09 18:36] LABS: GLUCOSE,POINT OF CARE 168 MG/DL (70-110)
[2017-01-09 18:36] LABS: GLUCOSE COMMENT 1 Received Meds; GLUCOSE,POINT OF CARE 168 MG/DL (70-110)
[2017-01-09 18:36] LABS: GLUCOSE COMMENT 1 Received Meds; GLUCOSE,POINT OF CARE 174 MG/DL (70-110)
[2017-01-09 18:36] LABS: GLUCOSE COMMENT 1 Received Meds; GLUCOSE,POINT OF CARE 177 MG/DL (70-110)
[2017-01-10] VITALS (17 sets, daily range): BP systolic 106–172; BP diastolic 60–106
[2017-01-10] MEDS: POTASSIUM CHL 10 MEQ/WATER 50 ML IV PRN (00:51)
[2017-01-10 01:32] LABS: GLUCOSE COMMENT 1 Received Meds; GLUCOSE,POINT OF CARE 149 MG/DL (70-110)
[2017-01-10] MEDS ORDERED: 0.9% SODIUM CHLORIDE 5 ML NEB SOLUTION NEB ONE ×4 (01:54→19:38)
[2017-01-10] MEDS: ALBUMIN HUMAN 25%-25GM/100ML 100 ML IV SCH ×3 (01:58→17:41)
[2017-01-10] MEDS: ALBUTEROL SULFATE 2.5 MG/0.5 ML NEB SOLUTION NEB SCH ×4 (01:59→19:40)
[2017-01-10] MEDS: MORPHINE SULFATE 2 MG/ML SYRINGE IVP PRN ×5 (02:28→21:58)
[2017-01-10] MEDS: INSULIN REGULAR, HUMAN 100 UNITS/ML SQ PRN ×4 (05:24→23:28)
[2017-01-10 05:26] LABS: EOSINOPHILS % (AUTO) 1.5 % (1.0-6.0); HEMATOCRIT 30.1 % (36-46); HEMOGLOBIN 9.8 g/dL (12.0-16.0); LYMPHOCYTES # (AUTO) 0.4 K/uL (1.0-4.8); LYMPHOCYTES % (AUTO) 4.6 % (22.0-44.0); MEAN CORPUSCULAR HEMOGLOBIN 31.2 pg (26.0-34.0); MEAN CORPUSCULAR HGB CONC 32.7 G/dL (31.0-37.0); MEAN CORPUSCULAR VOLUME 96 fL (80-100); MONOCYTES # (AUTO) 0.5 K/uL (0.1-1.0); MONOCYTES % (AUTO) 5.5 % (2.0-9.0); NEUTROPHILS # (AUTO) 7.7 K/uL (1.8-7.7); PLATELET COUNT (AUTO) 97 K/uL (150-450); RED BLOOD CELL COUNT(AUTO) 3.15 MIL/uL (4.00-5.20); RED CELL DISTRIBUTION WIDTH 24.8 % (11.5-14.5); WHITE BLOOD COUNT (AUTO) 8.7 K/uL (4.5-11.0)
[2017-01-10] MEDS: AMPICILLIN SODIUM/SULBACTAM NA 3 GM in SODIUM CHLORIDE 0.9% 100 ML IV SCH ×4 (05:27→23:15)
[2017-01-10 05:29] LABS: NEUTROPHILS % (AUTO) 88.4 % (40.0-70.0)
[2017-01-10] MEDS ORDERED: SODIUM CHLORIDE 0.9% 250 ML IV ONE (05:32)
[2017-01-10 05:37] LABS: ALANINE AMINOTRANSFERASE 15 U/L (12-78); ALBUMIN 4.4 g/dL (3.4-5.0); ANION GAP 15 mmol/L (8-16); ASPARTATE AMINOTRANSFERASE 47 U/L (15-37); BILIRUBIN,TOTAL 16.5 mg/dL (0.1-1.0); CARBON DIOXIDE 19 mmol/L (22-29); CHLORIDE 107 mmol/L (98-107); CREATININE 0.65 mg/dL (0.60-1.30); GLOMERULAR FILTR. RATE CALC > 60 mL/min (>60); SODIUM SERUM 141 mmol/L (136-145); TOTAL PROTEIN, SERUM 5.5 g/dL (6.4-8.2); UREA NITROGEN, BLOOD 24 mg/dL (7-18)
[2017-01-10 06:27] LABS: GLUCOSE COMMENT 1 Received Meds; GLUCOSE,POINT OF CARE 149 MG/DL (70-110)
[2017-01-10] MEDS: PANTOPRAZOLE SODIUM 40 MG/VIAL IVP SCH (07:53)
[2017-01-10] MEDS: AMIODARONE HCL 200 MG TABLET NG SCH ×2 (07:53→20:59)
[2017-01-10] MEDS: RIFAXIMIN 550 MG TABLET PO SCH ×2 (07:53→20:59)
[2017-01-10 09:12] LABS: RBC MORPHOLOGY COMMENT ABNORMAL RBC MORPH
[2017-01-10 09:31] LABS: MTB NUCL.ACID AMPLIF W/O AFBCS Detected (Negative)
[2017-01-10 09:57] LABS: ABG A-A DIFF O2 181.8 mmHg (10-20.0); ABG BASE EXCESS -8.1 mmol/L (-2.0-3.0); ABG HCO3 18.8 mmol/L (22.0-26.0); ABG OXYHEMOGLOBIN 93.3 % (94.0-100.0); ABG PCO2 27 mmHg (35-45); ABG PH 7.402 (7.35-7.450); ALLEN TEST, BLOOD GAS POSITIVE; TEMPERATURE, FAHRENHEIT, BG 97.4 FAHREN (96.0-98.6)
[2017-01-10] MEDS: ACETAMINOPHEN 325 MG TABLET PO PRN (14:34)
[2017-01-10 21:47] LABS: GLUCOSE COMMENT 1 Received Meds; GLUCOSE,POINT OF CARE 146 MG/DL (70-110)
[2017-01-11] VITALS (11 sets, daily range): BP systolic 101–172; BP diastolic 54–99
[2017-01-11] MEDS: MORPHINE SULFATE 2 MG/ML SYRINGE IVP PRN ×5 (00:16→21:15)
[2017-01-11] MEDS: ALBUMIN HUMAN 25%-25GM/100ML 100 ML IV SCH ×3 (01:22→18:05)
[2017-01-11] MEDS ORDERED: 0.9% SODIUM CHLORIDE 5 ML NEB SOLUTION NEB ONE ×4 (01:49→19:04)
[2017-01-11] MEDS: ALBUTEROL SULFATE 2.5 MG/0.5 ML NEB SOLUTION NEB SCH ×4 (01:53→19:09)
[2017-01-11 03:37] LABS: GLUCOSE COMMENT 1 Received Meds; GLUCOSE,POINT OF CARE 158 MG/DL (70-110)
[2017-01-11] MEDS ORDERED: SODIUM CHLORIDE 0.9% 250 ML IV ONE (04:33)
[2017-01-11] MEDS: INSULIN REGULAR, HUMAN 100 UNITS/ML SQ PRN ×2 (04:53→12:53)
[2017-01-11] MEDS: AMPICILLIN SODIUM/SULBACTAM NA 3 GM in SODIUM CHLORIDE 0.9% 100 ML IV SCH ×2 (05:06→12:52)
[2017-01-11 05:56] LABS: INR 1.8 (0.9-1.1); PROTHROMBIN TIME 19.4 SEC (9.4-11.6)
[2017-01-11 05:57] LABS: BASOPHILS % (AUTO) 0.3 % (0.0-2.0); EOSINOPHILS % (AUTO) 1.7 % (1.0-6.0); HEMATOCRIT 28.7 % (36-46); HEMOGLOBIN 9.3 g/dL (12.0-16.0); LYMPHOCYTES # (AUTO) 0.5 K/uL (1.0-4.8); LYMPHOCYTES % (AUTO) 6.5 % (22.0-44.0); MEAN CORPUSCULAR HEMOGLOBIN 31.4 pg (26.0-34.0); MEAN CORPUSCULAR HGB CONC 32.3 G/dL (31.0-37.0); MEAN CORPUSCULAR VOLUME 97 fL (80-100); MONOCYTES # (AUTO) 0.4 K/uL (0.1-1.0); MONOCYTES % (AUTO) 5.7 % (2.0-9.0); NEUTROPHILS # (AUTO) 6.5 K/uL (1.8-7.7); PLATELET COUNT (AUTO) 86 K/uL (150-450); RED BLOOD CELL COUNT(AUTO) 2.96 MIL/uL (4.00-5.20); RED CELL DISTRIBUTION WIDTH 25.2 % (11.5-14.5); WHITE BLOOD COUNT (AUTO) 7.6 K/uL (4.5-11.0)
[2017-01-11 06:11] LABS: ALANINE AMINOTRANSFERASE 20 U/L (12-78); ALBUMIN 4.5 g/dL (3.4-5.0); ANION GAP 16 mmol/L (8-16); ASPARTATE AMINOTRANSFERASE 55 U/L (15-37); BILIRUBIN,TOTAL 18.4 mg/dL (0.1-1.0); CALCIUM, TOTAL 8.6 mg/dL (8.8-10.5); CARBON DIOXIDE 20 mmol/L (22-29); CHLORIDE 105 mmol/L (98-107); CREATININE 0.63 mg/dL (0.60-1.30); GLOMERULAR FILTR. RATE CALC > 60 mL/min (>60); POTASSIUM 3.7 mmol/L (3.5-5.1); SODIUM SERUM 141 mmol/L (136-145); TOTAL PROTEIN, SERUM 5.9 g/dL (6.4-8.2); UREA NITROGEN, BLOOD 27 mg/dL (7-18)
[2017-01-11 06:51] LABS: NEUTROPHILS % (AUTO) 85.8 % (40.0-70.0)
[2017-01-11 06:52] LABS: RBC MORPHOLOGY COMMENT ABNORMAL RBC MORPH
[2017-01-11] MEDS: AMIODARONE HCL 200 MG TABLET NG SCH ×2 (08:10→21:15)
[2017-01-11] MEDS: RIFAXIMIN 550 MG TABLET PO SCH ×2 (08:10→21:15)
[2017-01-11] MEDS: PANTOPRAZOLE SODIUM 40 MG/VIAL IVP SCH (08:11)
[2017-01-11 08:12] LABS: ABG A-A DIFF O2 154.5 mmHg (10-20.0); ABG BASE EXCESS -7.4 mmol/L (-2.0-3.0); ABG OXYHEMOGLOBIN 94.3 % (94.0-100.0); ABG PCO2 35 mmHg (35-45); ABG PH 7.339 (7.35-7.450); TEMPERATURE, FAHRENHEIT, BG 98.6 FAHREN (96.0-98.6)
[2017-01-11 08:15] LABS: ALLEN TEST, BLOOD GAS Positive
[2017-01-11 12:10] LABS: ASPERGILLUS GALACTOMANNAN-EIA 0.05 Index (0.00-0.49)
[2017-01-11] MEDS: METOPROLOL TARTRATE 25 MG TABLET PO SCH ×2 (12:52→21:14)
[2017-01-11 18:31] LABS: GLUCOSE,POINT OF CARE 148 MG/DL (70-110)
[2017-01-11 20:27] LABS: GLUCOSE COMMENT 1 Received Meds; GLUCOSE,POINT OF CARE 168 MG/DL (70-110)
[2017-01-11] MEDS: CEFEPIME HCL 2 GM in DEXTROSE 5%-WATER 50 ML IV SCH (21:14)
[2017-01-12] VITALS: BP 104/61
[2017-01-12] MEDS: INSULIN REGULAR, HUMAN 100 UNITS/ML SQ PRN ×4 (01:09→23:59)
[2017-01-12] MEDS: MORPHINE SULFATE 2 MG/ML SYRINGE IVP PRN ×5 (01:10→23:47)
[2017-01-12] MEDS ORDERED: 0.9% SODIUM CHLORIDE 5 ML NEB SOLUTION NEB ONE ×4 (02:55→19:36)
[2017-01-12] MEDS: ALBUTEROL SULFATE 2.5 MG/0.5 ML NEB SOLUTION NEB SCH ×4 (02:58→19:50)
[2017-01-12] MEDS: ALBUMIN HUMAN 25%-25GM/100ML 100 ML IV SCH ×3 (03:33→17:25)
[2017-01-12 04:00] VITALS: BP 117/72
[2017-01-12] MEDS: CEFEPIME HCL 2 GM in DEXTROSE 5%-WATER 50 ML IV SCH ×2 (04:53→11:57)
[2017-01-12 05:30] LABS: BASOPHILS % (AUTO) 0.3 % (0.0-2.0); EOSINOPHILS % (AUTO) 2.2 % (1.0-6.0); HEMATOCRIT 28.6 % (36-46); HEMOGLOBIN 9.1 g/dL (12.0-16.0); LYMPHOCYTES # (AUTO) 0.4 K/uL (1.0-4.8); LYMPHOCYTES % (AUTO) 7.2 % (22.0-44.0); MEAN CORPUSCULAR HEMOGLOBIN 31.3 pg (26.0-34.0); MEAN CORPUSCULAR HGB CONC 31.8 G/dL (31.0-37.0); MEAN CORPUSCULAR VOLUME 98 fL (80-100); MONOCYTES # (AUTO) 0.4 K/uL (0.1-1.0); MONOCYTES % (AUTO) 7.3 % (2.0-9.0); NEUTROPHILS # (AUTO) 4.8 K/uL (1.8-7.7); PLATELET COUNT (AUTO) 75 K/uL (150-450); RED BLOOD CELL COUNT(AUTO) 2.91 MIL/uL (4.00-5.20); RED CELL DISTRIBUTION WIDTH 26.9 % (11.5-14.5); WHITE BLOOD COUNT (AUTO) 5.8 K/uL (4.5-11.0)
[2017-01-12 05:47] LABS: ALANINE AMINOTRANSFERASE 20 U/L (12-78); ANION GAP 13 mmol/L (8-16); ASPARTATE AMINOTRANSFERASE 49 U/L (15-37); BILIRUBIN,TOTAL 15.4 mg/dL (0.1-1.0); CALCIUM, TOTAL 8.6 mg/dL (8.8-10.5); CARBON DIOXIDE 21 mmol/L (22-29); CHLORIDE 110 mmol/L (98-107); CREATININE 0.82 mg/dL (0.60-1.30); GLOMERULAR FILTR. RATE CALC > 60 mL/min (>60); POTASSIUM 3.9 mmol/L (3.5-5.1); SODIUM SERUM 144 mmol/L (136-145); TOTAL PROTEIN, SERUM 5.3 g/dL (6.4-8.2); UREA NITROGEN, BLOOD 34 mg/dL (7-18)
[2017-01-12 08:00] VITALS: BP 112/62
[2017-01-12] MEDS: AMIODARONE HCL 200 MG TABLET NG SCH ×2 (08:39→21:07)
[2017-01-12] MEDS: PANTOPRAZOLE SODIUM 40 MG/VIAL IVP SCH (08:39)
[2017-01-12] MEDS: METOPROLOL TARTRATE 25 MG TABLET PO SCH ×2 (08:39→21:07)
[2017-01-12] MEDS: RIFAXIMIN 550 MG TABLET PO SCH ×2 (08:40→21:07)
[2017-01-12 10:14] LABS: ABG A-A DIFF O2 169.5 mmHg (10-20.0); ABG BASE EXCESS -7.5 mmol/L (-2.0-3.0); ABG HCO3 18.9 mmol/L (22.0-26.0); ABG OXYHEMOGLOBIN 96.5 % (94.0-100.0); ABG PCO2 34 mmHg (35-45); ABG PH 7.346 (7.35-7.450); TEMPERATURE, FAHRENHEIT, BG 98.7 FAHREN (96.0-98.6)
[2017-01-12 10:16] LABS: ALLEN TEST, BLOOD GAS Positive
[2017-01-12 10:30] LABS: RBC MORPHOLOGY COMMENT DIMORPHIC RBC
[2017-01-12 12:00] VITALS: BP 127/68
[2017-01-12 16:00] VITALS: BP 123/76
[2017-01-12] MEDS ORDERED: SODIUM CHLORIDE 0.9% 250 ML IV ONE (16:00)
[2017-01-12] MEDS ORDERED: *CLINICAL-BACTRIM/SEPTRA IVPB DOSING CLINICAL ONE (19:00)
[2017-01-12 20:00] VITALS: BP 126/77
[2017-01-12] MEDS: WATER IV SCH (21:07)
[2017-01-12] MEDS: TRIMETH IV SCH (21:07)
[2017-01-12] MEDS: SULFAMETHOX IV SCH (21:07)
[2017-01-12] MEDS: DEXTROSE IV SCH (21:07)
[2017-01-13] VITALS (10 sets, daily range): BP systolic 135–159; BP diastolic 61–116
[2017-01-13] MEDS ORDERED: 0.9% SODIUM CHLORIDE 5 ML NEB SOLUTION NEB ONE ×4 (01:36→19:26)
[2017-01-13] MEDS: ALBUTEROL SULFATE 2.5 MG/0.5 ML NEB SOLUTION NEB SCH ×4 (01:44→19:56)
[2017-01-13] MEDS: ALBUMIN HUMAN 25%-25GM/100ML 100 ML IV SCH ×3 (02:15→17:18)
[2017-01-13] MEDS: MORPHINE SULFATE 2 MG/ML SYRINGE IVP PRN ×7 (02:15→21:16)
[2017-01-13] MEDS: WATER IV SCH ×3 (04:09→20:00)
[2017-01-13] MEDS: TRIMETH IV SCH ×3 (04:09→20:00)
[2017-01-13] MEDS: DEXTROSE IV SCH ×3 (04:09→20:00)
[2017-01-13] MEDS: SULFAMETHOX IV SCH ×3 (04:09→20:00)
[2017-01-13 05:54] LABS: BASOPHILS # (AUTO) 0.03 K/uL (0.00-0.20); BASOPHILS % (AUTO) 0.4 % (0.0-2.0); EOSINOPHILS # (AUTO) 0.09 K/uL (0.00-0.70); EOSINOPHILS % (AUTO) 1.31 % (1.0-6.0); HEMATOCRIT 28.2 % (36-46); HEMOGLOBIN 9.2 g/dL (12.0-16.0); LYMPHOCYTES # (AUTO) 0.3 K/uL (1.0-4.8); LYMPHOCYTES % (AUTO) 4.5 % (22.0-44.0); MEAN CORPUSCULAR HEMOGLOBIN 31.9 pg (26.0-34.0); MEAN CORPUSCULAR HGB CONC 32.7 G/dL (31.0-37.0); MEAN CORPUSCULAR VOLUME 98 fL (80-100); MONOCYTES # (AUTO) 0.5 K/uL (0.1-1.0); MONOCYTES % (AUTO) 6.8 % (2.0-9.0); NEUTROPHILS # (AUTO) 6.2 K/uL (1.8-7.7); PLATELET COUNT (AUTO) 88 K/uL (150-450); RED BLOOD CELL COUNT(AUTO) 2.89 MIL/uL (4.00-5.20); RED CELL DISTRIBUTION WIDTH 27.3 % (11.5-14.5); WHITE BLOOD COUNT (AUTO) 7.2 K/uL (4.5-11.0)
[2017-01-13 06:14] LABS: ALANINE AMINOTRANSFERASE 26 U/L (12-78); ALBUMIN 4.8 g/dL (3.4-5.0); ANION GAP 15 mmol/L (8-16); ASPARTATE AMINOTRANSFERASE 57 U/L (15-37); BILIRUBIN,TOTAL 17.1 mg/dL (0.1-1.0); CALCIUM, TOTAL 8.9 mg/dL (8.8-10.5); CARBON DIOXIDE 20 mmol/L (22-29); CHLORIDE 108 mmol/L (98-107); CREATININE 0.65 mg/dL (0.60-1.30); GLOMERULAR FILTR. RATE CALC > 60 mL/min (>60); POTASSIUM 3.6 mmol/L (3.5-5.1); SODIUM SERUM 143 mmol/L (136-145); TOTAL PROTEIN, SERUM 6.3 g/dL (6.4-8.2); UREA NITROGEN, BLOOD 37 mg/dL (7-18)
[2017-01-13] MEDS: INSULIN REGULAR, HUMAN 100 UNITS/ML SQ PRN (06:26)
[2017-01-13] MEDS: AMIODARONE HCL 200 MG TABLET NG SCH ×2 (09:15→20:53)
[2017-01-13] MEDS: PANTOPRAZOLE SODIUM 40 MG/VIAL IVP SCH (09:15)
[2017-01-13] MEDS: METOPROLOL TARTRATE 25 MG TABLET PO SCH ×2 (09:16→20:53)
[2017-01-13] MEDS: RIFAXIMIN 550 MG TABLET PO SCH ×2 (09:18→20:53)
[2017-01-13 09:55] LABS: RBC MORPHOLOGY COMMENT DIMORPHIC RBC
[2017-01-13 11:03] LABS: ABG A-A DIFF O2 157.6 mmHg (10-20.0); ABG BASE EXCESS -9.1 mmol/L (-2.0-3.0); ABG HCO3 17.6 mmol/L (22.0-26.0); ABG OXYHEMOGLOBIN 93.5 % (94.0-100.0); ABG PCO2 36 mmHg (35-45); ABG PH 7.298 (7.35-7.450); TEMPERATURE, FAHRENHEIT, BG 99.4 FAHREN (96.0-98.6)
[2017-01-13 11:04] LABS: ALLEN TEST, BLOOD GAS Positive
[2017-01-13 11:47] LABS: GLUCOSE COMMENT 1 Received Meds; GLUCOSE,POINT OF CARE 138 MG/DL (70-110)
[2017-01-13 11:47] LABS: GLUCOSE COMMENT 1 Received Meds; GLUCOSE,POINT OF CARE 169 MG/DL (70-110)
[2017-01-13 11:47] LABS: GLUCOSE COMMENT 1 Received Meds; GLUCOSE,POINT OF CARE 174 MG/DL (70-110)
[2017-01-13] MEDS ORDERED: SODIUM CHLORIDE 0.9% 250 ML IV ONE (17:26)
[2017-01-13] MEDS: ACETAMINOPHEN 325 MG TABLET PO PRN (21:16)
[2017-01-14] VITALS (8 sets, daily range): BP systolic 98–182; BP diastolic 24–100
[2017-01-14] MEDS ORDERED: 0.9% SODIUM CHLORIDE 5 ML NEB SOLUTION NEB ONE ×4 (02:04→19:39)
[2017-01-14] MEDS: ALBUTEROL SULFATE 2.5 MG/0.5 ML NEB SOLUTION NEB SCH ×4 (02:13→19:40)
[2017-01-14] MEDS: ALBUMIN HUMAN 25%-25GM/100ML 100 ML IV SCH ×3 (03:02→17:57)
[2017-01-14] MEDS: CefTAZidime PENTAHYDRATE 2 GM in DEXTROSE 5%-WATER 50 ML IV SCH ×3 (03:08→20:39)
[2017-01-14] MEDS ORDERED: SODIUM CHLORIDE 0.9% 500 ML IV ONE (04:09)
[2017-01-14 05:07] LABS: BASOPHILS % (AUTO) 0.1 % (0.0-2.0); EOSINOPHILS % (AUTO) 1.9 % (1.0-6.0); HEMATOCRIT 25.9 % (36-46); HEMOGLOBIN 8.3 g/dL (12.0-16.0); LYMPHOCYTES # (AUTO) 0.4 K/uL (1.0-4.8); LYMPHOCYTES % (AUTO) 6.5 % (22.0-44.0); MEAN CORPUSCULAR HEMOGLOBIN 31.9 pg (26.0-34.0); MEAN CORPUSCULAR HGB CONC 32.2 G/dL (31.0-37.0); MEAN CORPUSCULAR VOLUME 99 fL (80-100); MONOCYTES # (AUTO) 0.5 K/uL (0.1-1.0); MONOCYTES % (AUTO) 8.7 % (2.0-9.0); NEUTROPHILS # (AUTO) 4.8 K/uL (1.8-7.7); NEUTROPHILS % (AUTO) 82.8 % (40.0-70.0); PLATELET COUNT (AUTO) 77 K/uL (150-450); RED BLOOD CELL COUNT(AUTO) 2.62 MIL/uL (4.00-5.20); RED CELL DISTRIBUTION WIDTH 27.7 % (11.5-14.5); WHITE BLOOD COUNT (AUTO) 5.8 K/uL (4.5-11.0)
[2017-01-14 05:18] LABS: ALBUMIN 4.5 g/dL (3.4-5.0); BILIRUBIN,TOTAL 15.7 mg/dL (0.1-1.0); CALCIUM, TOTAL 8.7 mg/dL (8.8-10.5); CREATININE 1.03 mg/dL (0.60-1.30); TOTAL PROTEIN, SERUM 5.8 g/dL (6.4-8.2)
[2017-01-14] MEDS: AMIODARONE HCL 200 MG TABLET NG SCH ×2 (07:32→20:39)
[2017-01-14] MEDS: METOPROLOL TARTRATE 25 MG TABLET PO SCH ×2 (07:32→20:39)
[2017-01-14 07:43] LABS: RBC MORPHOLOGY COMMENT DIMORPHIC RBC
[2017-01-14 07:53] LABS: ABG A-A DIFF O2 177.8 mmHg (10-20.0); ABG BASE EXCESS -9.3 mmol/L (-2.0-3.0); ABG HCO3 17.6 mmol/L (22.0-26.0); ABG OXYHEMOGLOBIN 90.9 % (94.0-100.0); ABG PCO2 31 mmHg (35-45); ABG PH 7.339 (7.35-7.450); TEMPERATURE, FAHRENHEIT, BG 98.6 FAHREN (96.0-98.6)
[2017-01-14 07:54] LABS: ALLEN TEST, BLOOD GAS Positive
[2017-01-14] MEDS: PANTOPRAZOLE SODIUM 40 MG/VIAL IVP SCH (09:46)
[2017-01-14] MEDS: RIFAXIMIN 550 MG TABLET PO SCH ×2 (09:46→20:39)
[2017-01-14 11:07] LABS: PROTHROMBIN TIME 21.4 SEC (9.4-11.6)
[2017-01-14 17:33] LABS: GLUCOSE COMMENT 1 Received Meds; GLUCOSE,POINT OF CARE 148 MG/DL (70-110)
[2017-01-14 17:33] LABS: GLUCOSE,POINT OF CARE 121 MG/DL (70-110)
[2017-01-14 17:33] LABS: GLUCOSE,POINT OF CARE 137 MG/DL (70-110)
[2017-01-14 17:33] LABS: GLUCOSE,POINT OF CARE 150 MG/DL (70-110)
[2017-01-14] MEDS: MORPHINE SULFATE 2 MG/ML SYRINGE IVP PRN ×2 (17:57→21:31)
[2017-01-15] VITALS (9 sets, daily range): BP systolic 94–153; BP diastolic 54–88
[2017-01-15] MEDS: INSULIN REGULAR, HUMAN 100 UNITS/ML SQ PRN ×4 (00:15→17:24)
[2017-01-15 00:17] LABS: GLUCOSE COMMENT 1 Received Meds; GLUCOSE,POINT OF CARE 140 MG/DL (70-110)
[2017-01-15 00:17] LABS: GLUCOSE COMMENT 1 Received Meds; GLUCOSE,POINT OF CARE 155 MG/DL (70-110)
[2017-01-15 00:17] LABS: GLUCOSE COMMENT 1 Received Meds; GLUCOSE,POINT OF CARE 169 MG/DL (70-110)
[2017-01-15 00:17] LABS: GLUCOSE COMMENT 1 Received Meds; GLUCOSE,POINT OF CARE 129 MG/DL (70-110)
[2017-01-15 00:17] LABS: GLUCOSE,POINT OF CARE 98 MG/DL (70-110)
[2017-01-15 00:22] LABS: GLUCOSE,POINT OF CARE 136 MG/DL (70-110)
[2017-01-15 00:22] LABS: GLUCOSE,POINT OF CARE 135 MG/DL (70-110)
[2017-01-15] MEDS ORDERED: 0.9% SODIUM CHLORIDE 5 ML NEB SOLUTION NEB ONE ×2 (01:35→19:23)
[2017-01-15] MEDS: ALBUTEROL SULFATE 2.5 MG/0.5 ML NEB SOLUTION NEB SCH ×4 (01:40→19:24)
[2017-01-15] MEDS: ALBUMIN HUMAN 25%-25GM/100ML 100 ML IV SCH ×3 (02:10→17:22)
[2017-01-15] MEDS: CefTAZidime PENTAHYDRATE 2 GM in DEXTROSE 5%-WATER 50 ML IV SCH ×3 (03:43→20:19)
[2017-01-15 05:35] LABS: ALBUMIN 5.2 g/dL (3.4-5.0); BILIRUBIN,TOTAL 18.6 mg/dL (0.1-1.0); CALCIUM, TOTAL 9.1 mg/dL (8.8-10.5); CREATININE 1.41 mg/dL (0.60-1.30); POTASSIUM 4.2 mmol/L (3.5-5.1); TOTAL PROTEIN, SERUM 6.8 g/dL (6.4-8.2)
[2017-01-15] MEDS: ACETAMINOPHEN 325 MG TABLET PO PRN (05:49)
[2017-01-15 07:11] LABS: BASOPHILS % (AUTO) 0.9 % (0.0-2.0); EOSINOPHILS % (AUTO) 0.8 % (1.0-6.0); HEMATOCRIT 26.8 % (36-46); HEMOGLOBIN 8.7 g/dL (12.0-16.0); LYMPHOCYTES # (AUTO) 0.4 K/uL (1.0-4.8); LYMPHOCYTES % (AUTO) 4.7 % (22.0-44.0); MEAN CORPUSCULAR HEMOGLOBIN 32.1 pg (26.0-34.0); MEAN CORPUSCULAR HGB CONC 32.6 G/dL (31.0-37.0); MEAN CORPUSCULAR VOLUME 99 fL (80-100); MONOCYTES # (AUTO) 0.6 K/uL (0.1-1.0); MONOCYTES % (AUTO) 7.3 % (2.0-9.0); NEUTROPHILS # (AUTO) 6.6 K/uL (1.8-7.7); NEUTROPHILS % (AUTO) 86.3 % (40.0-70.0); PLATELET COUNT (AUTO) 102 K/uL (150-450); RED BLOOD CELL COUNT(AUTO) 2.72 MIL/uL (4.00-5.20); RED CELL DISTRIBUTION WIDTH 29.6 % (11.5-14.5); WHITE BLOOD COUNT (AUTO) 7.7 K/uL (4.5-11.0)
[2017-01-15] MEDS ORDERED: 0.9% SODIUM CHLORIDE 15 ML NEB SOLUTION NEB ONE ×2 (07:13→13:31)
[2017-01-15] MEDS: PANTOPRAZOLE SODIUM 40 MG/VIAL IVP SCH (07:38)
[2017-01-15 07:56] LABS: RBC MORPHOLOGY COMMENT ABNORMAL RBC MORPH
[2017-01-15] MEDS: RIFAXIMIN 550 MG TABLET PO SCH ×2 (08:01→20:19)
[2017-01-15 08:37] LABS: GLUCOSE,POINT OF CARE 196 MG/DL (70-110)
[2017-01-15 08:37] LABS: GLUCOSE,POINT OF CARE 227 MG/DL (70-110)
[2017-01-15] MEDS ORDERED: SODIUM CHLORIDE 0.9% 0 ML IV ONE (08:56)
[2017-01-15] MEDS: METOPROLOL TARTRATE 25 MG TABLET PO SCH ×3 (08:59→20:19)
[2017-01-15] MEDS: AMIODARONE HCL 200 MG TABLET NG SCH ×3 (08:59→20:19)
[2017-01-15 09:19] LABS: ABG A-A DIFF O2 166.1 mmHg (10-20.0); ABG BASE EXCESS -10.2 mmol/L (-2.0-3.0); ABG OXYHEMOGLOBIN 92.3 % (94.0-100.0); ABG PCO2 30 mmHg (35-45); ABG PH 7.339 (7.35-7.450); TEMPERATURE, FAHRENHEIT, BG 99.4 FAHREN (96.0-98.6)
[2017-01-15 09:20] LABS: ALLEN TEST, BLOOD GAS Positive
[2017-01-15] MEDS: SODIUM CHLORIDE 0.9% 1,000 ML IV SCH (12:43)
[2017-01-15] MEDS: MORPHINE SULFATE 2 MG/ML SYRINGE IVP PRN ×2 (12:56→15:55)
[2017-01-16] VITALS (9 sets, daily range): BP systolic 107–153; BP diastolic 58–82
[2017-01-16] MEDS: INSULIN REGULAR, HUMAN 100 UNITS/ML SQ PRN ×2 (00:03→11:42)
[2017-01-16] MEDS: ALBUMIN HUMAN 25%-25GM/100ML 100 ML IV SCH ×3 (01:25→18:19)
[2017-01-16] MEDS: SODIUM CHLORIDE 0.9% 1,000 ML IV SCH ×2 (01:26→18:18)
[2017-01-16] MEDS: ALBUTEROL SULFATE 2.5 MG/0.5 ML NEB SOLUTION NEB SCH ×4 (01:43→19:23)
[2017-01-16] MEDS ORDERED: 0.9% SODIUM CHLORIDE 5 ML NEB SOLUTION NEB ONE ×4 (01:44→19:21)
[2017-01-16] MEDS: LACTULOSE 20 GM/30 ML SOLUTION UDCUP PO PRN (03:45)
[2017-01-16 05:01] LABS: BASOPHILS # (AUTO) 0.01 K/uL (0.00-0.20); BASOPHILS % (AUTO) 0.2 % (0.0-2.0); EOSINOPHILS # (AUTO) 0.01 K/uL (0.00-0.70); EOSINOPHILS % (AUTO) 0.37 % (1.0-6.0); HEMATOCRIT 25.9 % (36-46); HEMOGLOBIN 8.7 g/dL (12.0-16.0); LYMPHOCYTES # (AUTO) 0.2 K/uL (1.0-4.8); LYMPHOCYTES % (AUTO) 6.4 % (22.0-44.0); MEAN CORPUSCULAR HGB CONC 33.5 G/dL (31.0-37.0); MEAN CORPUSCULAR VOLUME 98 fL (80-100); MONOCYTES % (AUTO) 0.9 % (2.0-9.0); NEUTROPHILS # (AUTO) 3.3 K/uL (1.8-7.7); PLATELET COUNT (AUTO) 87 K/uL (150-450); RED BLOOD CELL COUNT(AUTO) 2.63 MIL/uL (4.00-5.20); RED CELL DISTRIBUTION WIDTH 29.9 % (11.5-14.5); WHITE BLOOD COUNT (AUTO) 3.6 K/uL (4.5-11.0)
[2017-01-16 05:18] LABS: NEUTROPHILS % (AUTO) 92.1 % (40.0-70.0)
[2017-01-16 05:22] LABS: INR 2.5 (0.9-1.1); PROTHROMBIN TIME 26.7 SEC (9.4-11.6)
[2017-01-16 05:31] LABS: ALBUMIN 4.7 g/dL (3.4-5.0); BILIRUBIN,TOTAL 17.6 mg/dL (0.1-1.0); CREATININE 1.61 mg/dL (0.60-1.30); POTASSIUM 3.8 mmol/L (3.5-5.1); TOTAL PROTEIN, SERUM 6.2 g/dL (6.4-8.2)
[2017-01-16 07:53] LABS: ABG A-A DIFF O2 172.4 mmHg (10-20.0); ABG BASE EXCESS -12.4 mmol/L (-2.0-3.0); ABG HCO3 15.8 mmol/L (22.0-26.0); ABG OXYHEMOGLOBIN 94.7 % (94.0-100.0); ABG PCO2 23 mmHg (35-45); ABG PH 7.372 (7.35-7.450); ALLEN TEST, BLOOD GAS Positive; TEMPERATURE, FAHRENHEIT, BG 98.6 FAHREN (96.0-98.6)
[2017-01-16] MEDS: PANTOPRAZOLE SODIUM 40 MG/VIAL IVP SCH (08:03)
[2017-01-16] MEDS: CefTAZidime PENTAHYDRATE 2 GM in DEXTROSE 5%-WATER 50 ML IV SCH ×2 (08:03→20:11)
[2017-01-16] MEDS: METOPROLOL TARTRATE 25 MG TABLET PO SCH ×2 (08:03→20:11)
[2017-01-16] MEDS: RIFAXIMIN 550 MG TABLET PO SCH ×2 (08:04→20:11)
[2017-01-16] MEDS: AMIODARONE HCL 200 MG TABLET NG SCH ×2 (08:04→20:11)
[2017-01-16] MEDS: ACETAMINOPHEN 325 MG TABLET PO PRN (08:04)
[2017-01-16 08:22] LABS: RBC MORPHOLOGY COMMENT ABNORMAL RBC MORPH
[2017-01-16] MEDS: MORPHINE SULFATE 2 MG/ML SYRINGE IVP PRN (09:22)
[2017-01-16] MEDS ORDERED: METOCLOPRAMIDE HCL 5 MG/ML 2 ML VIAL IVP PRN (16:30)
[2017-01-16] MEDS ORDERED: SODIUM CHLORIDE 0.9% 250 ML IV ONE (23:29)
[2017-01-17] VITALS (12 sets, daily range): BP systolic 91–119; BP diastolic 42–76
[2017-01-17] MEDS: ALBUTEROL SULFATE 2.5 MG/0.5 ML NEB SOLUTION NEB SCH ×4 (01:00→20:22)
[2017-01-17] MEDS ORDERED: 0.9% SODIUM CHLORIDE 5 ML NEB SOLUTION NEB ONE ×4 (01:00→20:06)
[2017-01-17] MEDS: ALBUMIN HUMAN 25%-25GM/100ML 100 ML IV SCH ×3 (02:47→17:38)
[2017-01-17 05:21] LABS: INR 1.9 (0.9-1.1); PROTHROMBIN TIME 19.8 SEC (9.4-11.6)
[2017-01-17 05:23] LABS: HEMATOCRIT 27.8 % (36-46); HEMOGLOBIN 8.8 g/dL (12.0-16.0); MEAN CORPUSCULAR HEMOGLOBIN 31.8 pg (26.0-34.0); MEAN CORPUSCULAR HGB CONC 31.8 G/dL (31.0-37.0); MEAN CORPUSCULAR VOLUME 100 fL (80-100); PLATELET COUNT (AUTO) 99 K/uL (150-450); RED BLOOD CELL COUNT(AUTO) 2.78 MIL/uL (4.00-5.20); WHITE BLOOD COUNT (AUTO) 10.5 K/uL (4.5-11.0)
[2017-01-17 05:34] LABS: CALCIUM, TOTAL 9.3 mg/dL (8.8-10.5); CREATININE 1.93 mg/dL (0.60-1.30); MAGNESIUM 2.1 mg/dL (1.80-2.40); POTASSIUM 3.7 mmol/L (3.5-5.1)
[2017-01-17] MEDS: CefTAZidime PENTAHYDRATE 2 GM in DEXTROSE 5%-WATER 50 ML IV SCH ×2 (08:30→20:30)
[2017-01-17] MEDS: AMIODARONE HCL 200 MG TABLET NG SCH (08:31)
[2017-01-17] MEDS: METOPROLOL TARTRATE 25 MG TABLET PO SCH ×2 (08:31→21:00)
[2017-01-17] MEDS: RIFAXIMIN 550 MG TABLET PO SCH ×2 (08:32→21:47)
[2017-01-17] MEDS: PANTOPRAZOLE SODIUM 40 MG/VIAL IVP SCH (09:38)
[2017-01-17 10:20] LABS: BAND NEUTROPHILS % (MANUAL) 32 % (1-5); LYMPHOCYTES % (MANUAL) 7 % (22-44); TOTAL CELLS COUNTED 100
[2017-01-17 10:25] LABS: RBC MORPHOLOGY COMMENT ABNORMAL R
[2017-01-17 10:35] LABS: ABG A-A DIFF O2 184.4 mmHg (10-20.0); ABG BASE EXCESS -13.9 mmol/L (-2.0-3.0); ABG HCO3 14.6 mmol/L (22.0-26.0); ABG OXYHEMOGLOBIN 91.8 % (94.0-100.0); ABG PCO2 24 mmHg (35-45); ABG PH 7.321 (7.35-7.450); TEMPERATURE, FAHRENHEIT, BG 98.6 FAHREN (96.0-98.6)
[2017-01-17 13:01] LABS: GLUCOSE COMMENT 1 Received Meds; GLUCOSE,POINT OF CARE 138 MG/DL (70-110)
[2017-01-17 13:24] LABS: APPEARANCE,UNSPUN,BODY FLUID CLOUDY (CLEAR); COLOR,BODY FLUID DARK YELLOW (LT YELLOW)
[2017-01-17 14:21] LABS: GLUCOSE COMMENT 1 Received Meds; GLUCOSE,POINT OF CARE 171 MG/DL (70-110)
[2017-01-17 15:52] LABS: GLUCOSE COMMENT 1 Received Meds; GLUCOSE,POINT OF CARE 141 MG/DL (70-110)
[2017-01-17 15:52] LABS: GLUCOSE COMMENT 1 Received Meds; GLUCOSE,POINT OF CARE 145 MG/DL (70-110)
[2017-01-17] MEDS: DEXTROSE 50%-WATER 25 GM/50 ML SYRINGE IVP PRN (17:34)
[2017-01-17] MEDS: SODIUM CHLORIDE 0.9% 1,000 ML IV SCH (17:38)
[2017-01-17 21:36] LABS: GLUCOSE COMMENT 1 Received Meds; GLUCOSE,POINT OF CARE 65 MG/DL (70-110)
[2017-01-17 21:36] LABS: GLUCOSE,POINT OF CARE 153 MG/DL (70-110)
[2017-01-18] VITALS (8 sets, daily range): BP systolic 96–112; BP diastolic 32–56
[2017-01-18] MEDS ORDERED: 0.9% SODIUM CHLORIDE 5 ML NEB SOLUTION NEB ONE ×4 (02:14→20:06)
[2017-01-18] MEDS: ALBUTEROL SULFATE 2.5 MG/0.5 ML NEB SOLUTION NEB SCH ×4 (02:16→20:06)
[2017-01-18] MEDS: ALBUMIN HUMAN 25%-25GM/100ML 100 ML IV SCH ×3 (02:20→18:09)
[2017-01-18 05:35] LABS: HEMOGLOBIN 8.8 g/dL (12.0-16.0); MEAN CORPUSCULAR HEMOGLOBIN 33.5 pg (26.0-34.0); MEAN CORPUSCULAR HGB CONC 33.9 G/dL (31.0-37.0); MEAN CORPUSCULAR VOLUME 99 fL (80-100); PLATELET COUNT (AUTO) 104 K/uL (150-450); RED BLOOD CELL COUNT(AUTO) 2.63 MIL/uL (4.00-5.20); RED CELL DISTRIBUTION WIDTH 30.9 % (11.5-14.5); WHITE BLOOD COUNT (AUTO) 13.4 K/uL (4.5-11.0)
[2017-01-18 05:53] LABS: ALBUMIN 4.2 g/dL (3.4-5.0); BILIRUBIN,TOTAL 17.4 mg/dL (0.1-1.0); CALCIUM, TOTAL 8.7 mg/dL (8.8-10.5); CREATININE 2.49 mg/dL (0.60-1.30); POTASSIUM 3.7 mmol/L (3.5-5.1); TOTAL PROTEIN, SERUM 5.8 g/dL (6.4-8.2)
[2017-01-18] MEDS: CefTAZidime PENTAHYDRATE 2 GM in DEXTROSE 5%-WATER 50 ML IV SCH ×2 (08:59→20:09)
[2017-01-18] MEDS: PANTOPRAZOLE SODIUM 40 MG/VIAL IVP SCH (09:06)
[2017-01-18] MEDS: METOPROLOL TARTRATE 25 MG TABLET PO SCH ×2 (09:06→20:10)
[2017-01-18] MEDS: AMIODARONE HCL 200 MG TABLET NG SCH (09:06)
[2017-01-18] MEDS: RIFAXIMIN 550 MG TABLET PO SCH ×2 (09:10→20:10)
[2017-01-18 09:32] LABS: GLUCOSE,POINT OF CARE 109 MG/DL (70-110)
[2017-01-18] MEDS: MORPHINE SULFATE 2 MG/ML SYRINGE IVP PRN ×2 (09:35→22:15)
[2017-01-18 09:37] LABS: GLUCOSE,POINT OF CARE 92 MG/DL (70-110)
[2017-01-18 11:42] LABS: GLUCOSE,POINT OF CARE 98 MG/DL (70-110)
[2017-01-18 12:03] LABS: BAND NEUTROPHILS % (MANUAL) 23 % (1-5); LYMPHOCYTES % (MANUAL) 1 % (22-44); TOTAL CELLS COUNTED 100
[2017-01-18 12:04] LABS: RBC MORPHOLOGY COMMENT ABNORMAL R
[2017-01-18] MEDS: SODIUM BICARBONATE 75 MEQ in SODIUM CHLORIDE 0.45% 1,000 ML IV SCH (13:01)
[2017-01-18 16:24] LABS: TOTAL PROTEIN,BODY FLUID,REF 2.2 g/dL
[2017-01-18] MEDS: INSULIN REGULAR, HUMAN 100 UNITS/ML SQ PRN (23:27)
[2017-01-18 23:36] LABS: GLUCOSE,POINT OF CARE 115 MG/DL (70-110)
[2017-01-19] VITALS: BP 88/33
[2017-01-19] MEDS: ALBUMIN HUMAN 25%-25GM/100ML 100 ML IV SCH ×3 (01:57→18:54)
[2017-01-19] MEDS: ALBUTEROL SULFATE 2.5 MG/0.5 ML NEB SOLUTION NEB SCH ×4 (02:00→19:35)
[2017-01-19] MEDS: SODIUM BICARBONATE 75 MEQ in SODIUM CHLORIDE 0.45% 1,000 ML IV SCH (03:49)
[2017-01-19 04:00] VITALS: BP 97/38
[2017-01-19 04:56] LABS: GLUCOSE,POINT OF CARE 116 MG/DL (70-110)
[2017-01-19 05:22] LABS: HEMATOCRIT 25.2 % (36-46); HEMOGLOBIN 8.6 g/dL (12.0-16.0); MEAN CORPUSCULAR HEMOGLOBIN 33.7 pg (26.0-34.0); MEAN CORPUSCULAR HGB CONC 34.1 G/dL (31.0-37.0); MEAN CORPUSCULAR VOLUME 99 fL (80-100); PLATELET COUNT (AUTO) 98 K/uL (150-450); RED BLOOD CELL COUNT(AUTO) 2.55 MIL/uL (4.00-5.20); RED CELL DISTRIBUTION WIDTH 30.2 % (11.5-14.5); WHITE BLOOD COUNT (AUTO) 15.2 K/uL (4.5-11.0)
[2017-01-19 05:35] LABS: ALBUMIN 4.6 g/dL (3.4-5.0); BILIRUBIN,TOTAL 17.6 mg/dL (0.1-1.0); CALCIUM, TOTAL 8.8 mg/dL (8.8-10.5); CREATININE 2.78 mg/dL (0.60-1.30); POTASSIUM 3.8 mmol/L (3.5-5.1); TOTAL PROTEIN, SERUM 6.2 g/dL (6.4-8.2)
[2017-01-19] MEDS: INSULIN REGULAR, HUMAN 100 UNITS/ML SQ PRN (06:10)
[2017-01-19] MEDS ORDERED: 0.9% SODIUM CHLORIDE 5 ML NEB SOLUTION NEB ONE ×3 (07:12→19:34)
[2017-01-19 07:26] LABS: BAND NEUTROPHILS % (MANUAL) 40 % (1-5); LYMPHOCYTES % (MANUAL) 14 % (22-44); TOTAL CELLS COUNTED 100
[2017-01-19 07:29] LABS: RBC MORPHOLOGY COMMENT DIMORPHIC RBC
[2017-01-19 08:00] VITALS: BP 92/37
[2017-01-19] MEDS ORDERED: EPOETIN ALFA 10,000 UNITS/ML VIAL SQ SCH (09:00)
[2017-01-19] MEDS: METOPROLOL TARTRATE 25 MG TABLET PO SCH ×2 (09:00→20:13)
[2017-01-19] MEDS: AMIODARONE HCL 200 MG TABLET NG SCH (09:00)
[2017-01-19] MEDS: PANTOPRAZOLE SODIUM 40 MG/VIAL IVP SCH (09:12)
[2017-01-19] MEDS: RIFAXIMIN 550 MG TABLET PO SCH ×2 (09:13→20:14)
[2017-01-19 12:00] VITALS: BP 86/45
[2017-01-19] MEDS: MIDODRINE HCL 5 MG TABLET PO SCH ×2 (13:19→20:14)
[2017-01-19] MEDS: NOREPINEPHRINE 4 MG/D5%-WATER 250 ML IV PRN ×2 (13:50→18:53)
[2017-01-19] MEDS ORDERED: SODIUM BICARBONATE 50 MEQ/50 ML VIAL IVP ONE (14:00)
[2017-01-19] MEDS ORDERED: SODIUM BICARBONATE [ADULT] 8.4% 50 MEQ/50 ML SYRINGE IVP ONE (14:15)
[2017-01-19] MEDS ORDERED: SODIUM BICARBONATE 150 MEQ in SODIUM CHLORIDE 0.45% 1,000 ML IV SCH ×3 (14:30→22:15)
[2017-01-19] MEDS: DEXTROSE 50%-WATER 25 GM/50 ML SYRINGE IVP PRN (15:17)
[2017-01-19 16:00] VITALS: BP 117/53
[2017-01-19] MEDS: PIPERACILLIN SODIUM/TAZOBACTAM 2.25 GM in DEXTROSE 5%-WATER 50 ML IV SCH ×2 (16:00→23:53)
[2017-01-19 16:56] LABS: ABG A-A DIFF O2 178.1 mmHg (10-20.0); ABG BASE EXCESS -19.8 mmol/L (-2.0-3.0); ABG HCO3 10.6 mmol/L (22.0-26.0); ABG OXYHEMOGLOBIN 90.4 % (94.0-100.0); ABG PCO2 25 mmHg (35-45); TEMPERATURE, FAHRENHEIT, BG 98.6 FAHREN (96.0-98.6)
[2017-01-19 16:57] LABS: ABG PH 7.164 (7.35-7.450); ALLEN TEST, BLOOD GAS Positive
[2017-01-19] MEDS ORDERED: SODIUM CHLORIDE 0.9% 500 ML IV ONE ×2 (17:39→18:00)
[2017-01-19] MEDS ORDERED: HEPARIN SODIUM,PORCINE 1,000 UNITS/ML VIAL IVP ONE (18:15)
[2017-01-19 19:43] LABS: CALCIUM, TOTAL 8.1 mg/dL (8.8-10.5); CREATININE 2.86 mg/dL (0.60-1.30); POTASSIUM 3.7 mmol/L (3.5-5.1)
[2017-01-19 20:00] VITALS: BP 115/38
[2017-01-19 20:08] LABS: APPEARANCE,URINE TURBID (CLEAR); GLUCOSE, URINE (UA) NEGATIVE (NEGATIVE); KETONES,URINE 15 mg/dL (NEGATIVE); LEUKOCYTE ESTERASE ,URINE LARGE (NEGATIVE); OCCULT BLOOD,URINE LARGE (NEGATIVE); PH,URINE 6.5 (5.0-8.0); PROTEIN,URINE SEE CONFIRM (NEGATIVE)
[2017-01-19] MEDS ORDERED: 0.9% SODIUM CHLORIDE 10 ML SYRINGE IVP PRN (20:30)
[2017-01-19 20:32] LABS: ADD UA MICROSCOPIC YES
[2017-01-19 20:33] LABS: SULFOSALICYLIC ACID,URINE 4+ (Negative)
[2017-01-19 20:34] LABS: RBC,URINE Full Field /HPF (0-2); WBC,URINE 26-50 /HPF (0-5)
[2017-01-19 20:35] LABS: CALCIUM OXALATE CRYSTALS,UR Rare /LPF (None Seen); SQUAMOUS EPITHELIAL CELL,UR Few /LPF (None Seen)
[2017-01-19 20:36] LABS: FINE GRANULAR CASTS,URINE 0-2 /LPF (None Seen)
[2017-01-19] MEDS ORDERED: SODIUM BICARBONATE 150 MEQ in SODIUM CHLORIDE 0.9% 1,000 ML IV SCH (22:00)
[2017-01-19] MEDS ORDERED: SODIUM CHLORIDE 0.9% 250 ML IV ONE (23:41)
[2017-01-19 23:51] LABS: GLUCOSE COMMENT 1 Juice/Food/D50 Given; GLUCOSE,POINT OF CARE 47 MG/DL (70-110)
[2017-01-19 23:56] LABS: GLUCOSE,POINT OF CARE 84 MG/DL (70-110)
[2017-01-19 23:56] LABS: GLUCOSE,POINT OF CARE 115 MG/DL (70-110)
[2017-01-20] VITALS (21 sets, daily range): BP systolic 90–111; BP diastolic 36–52
[2017-01-20] MEDS ORDERED: CASPOFUNGIN ACETATE 70 MG in SODIUM CHLORIDE 0.9% 250 ML IV ONE ×2
[2017-01-20 00:01] LABS: GLUCOSE,POINT OF CARE 79 MG/DL (70-110)
[2017-01-20] MEDS: INSULIN REGULAR, HUMAN 100 UNITS/ML SQ PRN ×2 (00:13→04:58)
[2017-01-20] MEDS: NOREPINEPHRINE 4 MG/D5%-WATER 250 ML IV PRN ×2 (00:57→10:06)
[2017-01-20] MEDS: ALBUMIN HUMAN 25%-25GM/100ML 100 ML IV SCH ×3 (01:30→18:04)
[2017-01-20] MEDS: ALBUTEROL SULFATE 2.5 MG/0.5 ML NEB SOLUTION NEB SCH ×4 (01:48→19:52)
[2017-01-20] MEDS ORDERED: 0.9% SODIUM CHLORIDE 5 ML NEB SOLUTION NEB ONE ×4 (01:48→19:53)
[2017-01-20] MEDS: DEXTROSE 50%-WATER 25 GM/50 ML SYRINGE IVP PRN ×4 (04:47→23:08)
[2017-01-20 05:06] LABS: PROTHROMBIN TIME 63.7 SEC (9.4-11.6)
[2017-01-20 05:29] LABS: ALBUMIN 4.5 g/dL (3.4-5.0); BILIRUBIN,TOTAL 17.6 mg/dL (0.1-1.0); CREATININE 2.99 mg/dL (0.60-1.30); MAGNESIUM 2.2 mg/dL (1.80-2.40); PHOSPHORUS 4.7 mg/dL (2.5-4.9); POTASSIUM 3.7 mmol/L (3.5-5.1); TOTAL PROTEIN, SERUM 5.9 g/dL (6.4-8.2)
[2017-01-20 06:01] LABS: GLUCOSE COMMENT 1 Received Meds; GLUCOSE,POINT OF CARE 43 MG/DL (70-110)
[2017-01-20 06:01] LABS: GLUCOSE,POINT OF CARE 114 MG/DL (70-110)
[2017-01-20 06:11] LABS: PROTHROMBIN TIME 65.8 SEC (9.4-11.6)
[2017-01-20 06:18] LABS: HEMATOCRIT 24.6 % (36-46); MEAN CORPUSCULAR HEMOGLOBIN 32.8 pg (26.0-34.0); MEAN CORPUSCULAR HGB CONC 32.4 G/dL (31.0-37.0); MEAN CORPUSCULAR VOLUME 102 fL (80-100); PLATELET COUNT (AUTO) 92 K/uL (150-450); RED BLOOD CELL COUNT(AUTO) 2.43 MIL/uL (4.00-5.20); RED CELL DISTRIBUTION WIDTH 31.1 % (11.5-14.5)
[2017-01-20 06:26] LABS: INR 6.2 (0.9-1.1)
[2017-01-20] MEDS ORDERED: PHYTONADIONE 5 MG in SODIUM CHLORIDE 0.9% 50 ML IV ONE (07:15)
[2017-01-20 07:25] LABS: WHITE BLOOD COUNT (AUTO) 32.9 K/uL (4.5-11.0)
[2017-01-20 07:29] LABS: BAND NEUTROPHILS % (MANUAL) 42 % (1-5); LYMPHOCYTES % (MANUAL) 3 % (22-44); TOTAL CELLS COUNTED 100
[2017-01-20 07:30] LABS: WBC MORPHOLOGY TOXIC GRANULATION
[2017-01-20 07:34] LABS: TEMPERATURE, FAHRENHEIT, BG 98.6 FAHREN (96.0-98.6)
[2017-01-20 07:56] LABS: ABG A-A DIFF O2 172.9 mmHg (10-20.0); ABG BASE EXCESS -24.7 mmol/L (-2.0-3.0); ABG OXYHEMOGLOBIN 89.4 % (94.0-100.0); ABG PCO2 26 mmHg (35-45)
[2017-01-20 07:57] LABS: ABG HCO3 7.3 mmol/L (22.0-26.0); ABG PH 7.008 (7.35-7.450)
[2017-01-20 07:58] LABS: ALLEN TEST, BLOOD GAS Positive
[2017-01-20] MEDS: METOPROLOL TARTRATE 25 MG TABLET PO SCH ×2 (09:00→19:19)
[2017-01-20] MEDS: MIDODRINE HCL 5 MG TABLET PO SCH ×2 (09:05→20:05)
[2017-01-20] MEDS: PANTOPRAZOLE SODIUM 40 MG/VIAL IVP SCH (09:05)
[2017-01-20] MEDS: PIPERACILLIN SODIUM/TAZOBACTAM 2.25 GM in DEXTROSE 5%-WATER 50 ML IV SCH ×3 (09:05→23:07)
[2017-01-20] MEDS: RIFAXIMIN 550 MG TABLET PO SCH ×2 (09:05→20:05)
[2017-01-20] MEDS ORDERED: SODIUM CHLORIDE 0.9% 100 ML ONE (10:25)
[2017-01-20] MEDS ORDERED: SODIUM CHLORIDE 0.9% 2,000 ML IV ONE (10:36)
[2017-01-20] MEDS ORDERED: SODIUM CHLORIDE 0.9% 500 ML IV ONE (11:55)
[2017-01-20] MEDS ORDERED: PHENYLEPHRINE HCL 800 MG in DEXTROSE 5%-WATER 170 ML IV PRN (12:00)
[2017-01-20] MEDS ORDERED: VASOPRESSIN 100 UNITS in DEXTROSE 5%-WATER 245 ML IV PRN (12:00)
[2017-01-20 12:59] LABS: LACTIC ACID 12.5 mmol/L (0.4-2.0)
[2017-01-20 14:09] LABS: REFLEX LACTIC ACID? YES YES
[2017-01-20] MEDS: SODIUM CHLORIDE 0.45% IV SCH ×4 (14:12→22:19)
[2017-01-20] MEDS: NOREPINEPHRINE BITARTRATE 16 MG in DEXTROSE 5%-WATER 234 ML IV PRN (14:12)
[2017-01-20] MEDS: SODIUM BICARBONATE IV SCH ×4 (14:12→22:19)
[2017-01-20] MEDS: CALCIUM GLUCONATE IV SCH ×4 (14:12→22:19)
[2017-01-20 15:45] LABS: HEMATOCRIT 18.1 % (36-46); HEMOGLOBIN 5.8 g/dL (12.0-16.0)
[2017-01-20 16:10] LABS: ABG A-A DIFF O2 136.5 mmHg (10-20.0); ABG BASE EXCESS -26.9 mmol/L (-2.0-3.0); ABG OXYHEMOGLOBIN 91.2 % (94.0-100.0); ABG PCO2 39 mmHg (35-45); ABG PH 6.855 (7.35-7.450); TEMPERATURE, FAHRENHEIT, BG 98.6 FAHREN (96.0-98.6)
[2017-01-20 16:12] LABS: ABG HCO3 5.7 mmol/L (22.0-26.0)
[2017-01-20 16:13] LABS: INSIPIRATORY PRESSURE, BG 28 cm H2O
[2017-01-20 16:36] LABS: GLUCOSE,POINT OF CARE 114 MG/DL (70-110)
[2017-01-20 16:42] LABS: GLUCOSE,POINT OF CARE 121 MG/DL (70-110)
[2017-01-20 16:51] LABS: GLUCOSE,POINT OF CARE 96 MG/DL (70-110)
[2017-01-20] MEDS ORDERED: SODIUM CHLORIDE 0.9% 250 ML IV ONE (17:13)
[2017-01-20 17:16] LABS: INR 2.6 (0.9-1.1)
[2017-01-20 17:19] LABS: FIBRINOGEN 87 mg/dL (200-400); PARTIAL THROMBOPLASTIN TIME 182 SEC (25-35)
[2017-01-20 17:32] LABS: GLUCOSE,POINT OF CARE 94 MG/DL (70-110)
[2017-01-20 17:32] LABS: GLUCOSE,POINT OF CARE 75 MG/DL (70-110)
[2017-01-20 17:32] LABS: GLUCOSE,POINT OF CARE 72 MG/DL (70-110)
[2017-01-20] MEDS ORDERED: DEXTROSE 5%-WATER 250 ML IV ONE (23:27)
[2017-01-21] VITALS: BP 105/42
[2017-01-21] MEDS ORDERED: CASPOFUNGIN ACETATE 35 MG in SODIUM CHLORIDE 0.9% 100 ML IV SCH ×2
[2017-01-21] MEDS: INSULIN REGULAR, HUMAN 100 UNITS/ML SQ PRN (00:20)
[2017-01-21] MEDS: SODIUM BICARBONATE IV SCH ×5 (00:38→11:34)
[2017-01-21] MEDS: CALCIUM GLUCONATE IV SCH ×5 (00:38→11:34)
[2017-01-21] MEDS: SODIUM CHLORIDE 0.45% IV SCH ×5 (00:38→11:34)
[2017-01-21] MEDS: NOREPINEPHRINE BITARTRATE 16 MG in DEXTROSE 5%-WATER 234 ML IV PRN (00:39)
[2017-01-21] MEDS: ALBUMIN HUMAN 25%-25GM/100ML 100 ML IV SCH ×2 (01:18→10:22)
[2017-01-21] MEDS ORDERED: 0.9% SODIUM CHLORIDE 5 ML NEB SOLUTION NEB ONE ×2 (01:44→07:46)
[2017-01-21] MEDS: ALBUTEROL SULFATE 2.5 MG/0.5 ML NEB SOLUTION NEB SCH ×2 (01:44→09:36)
[2017-01-21] MEDS: DEXTROSE 50%-WATER 25 GM/50 ML SYRINGE IVP PRN ×2 (03:51→09:17)
[2017-01-21 04:00] VITALS: BP 103/42
[2017-01-21] MEDS: POTASSIUM CHLORIDE 20 MEQ in NXSTAGE RFP-402 K0/CA3 5,000 ML IRRIG PRN ×2 (04:36→11:35)
[2017-01-21 06:30] LABS: CALCIUM, TOTAL 7.5 mg/dL (8.8-10.5); CREATININE 1.83 mg/dL (0.60-1.30); POTASSIUM 4.6 mmol/L (3.5-5.1)
[2017-01-21 07:05] LABS: HEMATOCRIT 21.8 % (36-46); HEMOGLOBIN 7.2 g/dL (12.0-16.0); MEAN CORPUSCULAR HEMOGLOBIN 31.3 pg (26.0-34.0); MEAN CORPUSCULAR VOLUME 95 fL (80-100); PLATELET COUNT (AUTO) 31 K/uL (150-450); RED CELL DISTRIBUTION WIDTH 22.6 % (11.5-14.5)
[2017-01-21] MEDS: PIPERACILLIN SODIUM/TAZOBACTAM 2.25 GM in DEXTROSE 5%-WATER 50 ML IV SCH (07:51)
[2017-01-21] MEDS: PANTOPRAZOLE SODIUM 40 MG/VIAL IVP SCH (07:51)
[2017-01-21 08:00] VITALS: BP 82/33
[2017-01-21 08:32] LABS: ABG A-A DIFF O2 129.3 mmHg (10-20.0); ABG BASE EXCESS -24.1 mmol/L (-2.0-3.0); ABG PCO2 36 mmHg (35-45); TEMPERATURE, FAHRENHEIT, BG 98.6 FAHREN (96.0-98.6)
[2017-01-21 08:52] LABS: ABG HCO3 7.5 mmol/L (22.0-26.0)
[2017-01-21 08:53] LABS: INSIPIRATORY PRESSURE, BG 32 cm H2O
[2017-01-21] MEDS: MIDODRINE HCL 5 MG TABLET PO SCH (09:00)
[2017-01-21] MEDS: RIFAXIMIN 550 MG TABLET PO SCH (09:00)
[2017-01-21] MEDS: METOPROLOL TARTRATE 25 MG TABLET PO SCH (09:00)
[2017-01-21 09:09] LABS: BAND NEUTROPHILS % (MANUAL) 42 % (1-5); CORRECTED WHITE BLOOD COUNT 26.8 K/uL (4.5-11.0); LYMPHOCYTES % (MANUAL) 7 % (22-44); TOTAL CELLS COUNTED 100
[2017-01-21 09:11] LABS: RBC MORPHOLOGY COMMENT ABNORMAL RBC MORPH
[2017-01-21 09:16] LABS: WHITE BLOOD COUNT (AUTO) 26.8 K/uL (4.5-11.0)
[2017-01-21] MEDS ORDERED: SODIUM CHLORIDE 0.9% 3,000 ML IV ONE (13:09)
[2017-01-21 13:47] LABS: GLUCOSE,POINT OF CARE 132 MG/DL (70-110)
[2017-01-21 13:47] LABS: GLUCOSE,POINT OF CARE 220 MG/DL (70-110)
[2017-01-21 13:47] LABS: GLUCOSE COMMENT 1 Doctor Notified; GLUCOSE,POINT OF CARE 23 MG/DL (70-110)
[2017-01-21 13:47] LABS: GLUCOSE,POINT OF CARE 184 MG/DL (70-110)
[2017-01-21 13:47] LABS: GLUCOSE COMMENT 1 Received Meds; GLUCOSE,POINT OF CARE 75 MG/DL (70-110)
[2017-01-21 13:47] LABS: GLUCOSE,POINT OF CARE 52 MG/DL (70-110)
[2017-01-21 13:47] LABS: GLUCOSE,POINT OF CARE 89 MG/DL (70-110)
[2017-01-21 13:47] LABS: GLUCOSE COMMENT 1 Received Meds; GLUCOSE,POINT OF CARE 44 MG/DL (70-110)
[2017-01-21 13:47] LABS: GLUCOSE,POINT OF CARE 222 MG/DL (70-110)
[2017-01-21 13:48] LABS: GLUCOSE,POINT OF CARE 233 MG/DL (70-110)
[2017-01-21 13:48] LABS: GLUCOSE,POINT OF CARE 127 MG/DL (70-110)
[2017-01-21 13:48] LABS: GLUCOSE COMMENT 1 Received Meds; GLUCOSE,POINT OF CARE 50 MG/DL (70-110)
[2017-01-21 13:48] LABS: GLUCOSE COMMENT 1 Juice/Food/D50 Given; GLUCOSE,POINT OF CARE 69 MG/DL (70-110)
[2017-01-21 13:48] LABS: GLUCOSE,POINT OF CARE 242 MG/DL (70-110)
== END 2017-01-21 16:00 | disposition expired | DRG 870 ==
LOC: EMS 17:26 → ICU 01-01 03:34 → ICUN 01-05 22:02 → ICU 01-10 11:37 → ICUN 01-17 15:52
PROVIDERS: ADMIT Hospitalist; ATTEND Hospitalist
PROC: 5A1955Z Respiratory Ventilation, Greater than 96 Consecutive Hours (ICD-10-PCS; principal; 2017-01-01)
PROC: 0BH17EZ Insertion of Endotracheal Airway into Trachea, Via Natural or Artificial Opening (ICD-10-PCS; 2017-01-01)
PROC: 04HY32Z Insertion of Monitoring Device into Lower Artery, Percutaneous Approach (ICD-10-PCS; 2017-01-01)
PROC: 0DH67UZ Insertion of Feeding Device into Stomach, Via Natural or Artificial Opening (ICD-10-PCS; 2017-01-01)
PROC: 0W993ZZ Drainage of Right Pleural Cavity, Percutaneous Approach (ICD-10-PCS; 2017-01-01)
PROC: 30233N1 Transfusion of Nonautologous Red Blood Cells into Peripheral Vein, Percutaneous Approach (ICD-10-PCS; 2017-01-05)
PROC: 30233K1 Transfusion of Nonautologous Frozen Plasma into Peripheral Vein, Percutaneous Approach (ICD-10-PCS; 2017-01-16)
PROC: 0W9G3ZZ Drainage of Peritoneal Cavity, Percutaneous Approach (ICD-10-PCS; 2017-01-17)
PROC: B54BZZA Ultrasonography of Right Lower Extremity Veins, Guidance (ICD-10-PCS; 2017-01-19)
PROC: 30233L1 Transfusion of Nonautologous Fresh Plasma into Peripheral Vein, Percutaneous Approach (ICD-10-PCS; 2017-01-19)
PROC: 02HV33Z Insertion of Infusion Device into Superior Vena Cava, Percutaneous Approach (ICD-10-PCS; 2017-01-19)
DX: A41.9 Sepsis, unspecified organism (principal); E43 Unspecified severe protein-calorie malnutrition; J96.00 Acute respiratory failure, unspecified whether with hypoxia or hypercapnia; J18.9 Pneumonia, unspecified organism; R65.21 Severe sepsis with septic shock; K65.8 Other peritonitis; D65 Disseminated intravascular coagulation [defibrination syndrome]; J15.6 Pneumonia due to other Gram-negative bacteria; K76.7 Hepatorenal syndrome; A15.0 Tuberculosis of lung; E87.1 Hypo-osmolality and hyponatremia; N39.0 Urinary tract infection, site not specified; N17.9 Acute kidney failure, unspecified; J90 Pleural effusion, not elsewhere classified; E87.2 Acidosis; D62 Acute posthemorrhagic anemia; D69.6 Thrombocytopenia, unspecified; E87.6 Hypokalemia; I10 Essential (primary) hypertension; Z79.4 Long term (current) use of insulin; Z51.5 Encounter for palliative care; Z66 Do not resuscitate; N18.9 Chronic kidney disease, unspecified; M81.0 Age-related osteoporosis without current pathological fracture; I49.5 Sick sinus syndrome; I48.91 Unspecified atrial fibrillation; E10.22 Type 1 diabetes mellitus with diabetic chronic kidney disease; E10.65 Type 1 diabetes mellitus with hyperglycemia; K74.3 Primary biliary cirrhosis; K72.90 Hepatic failure, unspecified without coma; I08.3 Combined rheumatic disorders of mitral, aortic and tricuspid valves; I12.9 Hypertensive chronic kidney disease with stage 1 through stage 4 chronic kidney disease, or unspecified chronic kidney disease; G47.10 Hypersomnia, unspecified; Z79.899 Other long term (current) drug therapy; Z90.49 Acquired absence of other specified parts of digestive tract
CPT/HCPCS: 32555; 49083; 51702; 70450; 76700; 76770; 76942; 82271; 82465; 82570; 82607; 82746; 82805; 82945; 82962; 83036; 83540; 83550; 83605; 83615; 83735; 83986; 84100; 84132; 84145; 84155; 84157; 84300; 84311; 84443; 84540; 85014; 85018; 85362; 85379; 85384; 86704; 86706; 86850; 86900; 86901; 86920; 86927; 87015; 87040; 87070; 87081; 87086; 87101; 87106; 87107; 87149; 87188; 87205; 87305; 87340; 87556; 88108; 88341; 88342; 89050; 89051; 90947; 93005; 93306; 93970; 94002; 94003; 94640; 96365; 96366; 96375; 99285; C9113; J0282; J0295; J0330; J0610; J0637; J0692; J0696; J0713; J0885; J1644; J1815; J1940; J2270; J2370; J2405; J2543; J2704; J2765; J3430; J3480; J3490; J7030; J7040; J7050; J7060; P9016; P9017; P9046